=== PATIENT | female | born 1970 | race Hispanic/Latino ===

== ENCOUNTER → 2022-06-10 | Outpatient (CLI) | payer BC ==
[~2022-06-10] MED LIST: FUROSEMIDE INJ 10 MG/ML 4 ML VIAL ONE
== END ==
LOC: NM 08:21
PROVIDERS: ATTEND Urology
DX: N13.30 Unspecified hydronephrosis (principal); T19.1XXA Foreign body in bladder, initial encounter
CPT/HCPCS: 76770; 76857; 78708; A9562; J1940

== ENCOUNTER 2022-07-07 12:42 | Emergency (ER) | payer BC ==
[~2022-07-07] VITALS: Ht 149.9 cm; Wt 58.1 kg
[2022-07-07] MEDS ORDERED: SODIUM CHLORIDE 0.9% 1000ML 1,000 ML IV STA ×2 (13:23→13:31)
[2022-07-07] MEDS ORDERED: ACETAMINOPHEN 1000 MG/100 ML IV ONE (13:45)
[2022-07-07 13:54] LABS: BASOPHILS % 0.2 % (0.0-1.0); HEMOGLOBIN 11.5 g/dL (12.0-16.0); LYMPHOCYTES # (AUTO) 1.1 (1.0-3.2); LYMPHOCYTES % 9.4 % (18.0-39.1); MEAN CORPUSCULAR HEMOGLOBIN 29.3 pg (28-32); MEAN CORPUSCULAR HGB CONC 33.8 g/dL (31-35); MEAN CORPUSCULAR VOLUME 86.5 fL (81-99); MONOCYTES % 8.3 % (4.4-11.3); NEUTROPHILS # (AUTO) 9.9 (2.1-6.9); NEUTROPHILS % 81.4 % (38.7-80.0); PLATELET COUNT 409 x10e3/uL (140-360); RED BLOOD COUNT 3.93 x10e6/uL (3.6-5.1); RED CELL DISTRIBUTION WIDTH 12.3 % (11.7-14.4)
[2022-07-07 14:14] LABS: ALBUMIN 3.4 g/dL (3.5-5.0); ALBUMIN/GLOBULIN RATIO 0.6 (0.8-2.0); CREATININE, SERUM 0.91 mg/dL (0.57-1.11)
[2022-07-07 14:35] LABS: ANION GAP 19.8 mmol/L (8-16); POTASSIUM 3.8 mmol/L (3.5-5.1)
[2022-07-07 16:12] LABS: CLARITY,URINE CLOUDY (CLEAR); COLOR,URINE YELLOW (YELLOW)
[2022-07-07 16:13] LABS: KETONES,URINE 2+ (NEGATIVE); LEUKOCYTE ESTERASE ,URINE SMALL (NEGATIVE); NITRITE,URINE POSITIVE (NEGATIVE); PROTEIN,URINE DIPSTICK 2+ (NEGATIVE); URINE UROBILINOGEN 0.2 mg/dL (0.2 - 1)
[2022-07-07 16:19] LABS: BACTERIA,URINE MODERATE /HPF; RBC,URINE 21-50 /HPF (0-5); WBC,URINE (MAN) >50 /HPF (0-5)
[2022-07-07 16:20] LABS: EPITHELIAL CELLS,URINE MODERATE /LPF; MUCUS,URINE MANY (RARE)
[2022-07-07] MEDS ORDERED: CIPRO500 MG PO (16:51)
[2022-07-07 17:20] VITALS: BP 111/84
== END 2022-07-07 17:00 | disposition home or self-care (01) ==
LOC: ER 13:12
DX: R50.9 Fever, unspecified (principal); R11.2 Nausea with vomiting, unspecified; I10 Essential (primary) hypertension; Z20.822 Contact with and (suspected) exposure to COVID-19; R94.31 Abnormal electrocardiogram [ECG] [EKG]; Z85.41 Personal history of malignant neoplasm of cervix uteri
CPT/HCPCS: 36415; 71045; 74176; 80053; 81001; 83605; 83690; 85025; 87040; 87086; 87186; 87400; 93005; 94760; 99284; J0131; J2543; J7030; U0002

== ENCOUNTER 2022-07-29 13:33 | Emergency (ER) | payer BC ==
[~2022-07-29] VITALS: Ht 149.9 cm; Wt 58.1 kg
[~2022-07-29 13:33] MED LIST changes: -ATORVASTATIN CA10 MG PO; -CEFDINIR300 MG PO; -DITROPAN XL5 MG PO; -FUROSEMIDE INJ 10 MG/ML 4 ML VIAL ONE
[2022-07-29] MEDS ORDERED: SODIUM CHLORIDE 0.9% 1000ML 1,000 ML IV ONE (15:45)
[2022-07-29 16:02] LABS: BASOPHILS % 0.2 % (0.0-1.0); EOSINOPHILS # (AUTO) 0.1 (0.0-0.4); EOSINOPHILS % 0.8 % (0.0-6.0); HEMATOCRIT 36.5 % (34.2-44.1); HEMOGLOBIN 11.3 g/dL (12.0-16.0); LYMPHOCYTES % 16.2 % (18.0-39.1); MEAN CORPUSCULAR HEMOGLOBIN 28.5 pg (28-32); MEAN CORPUSCULAR VOLUME 91.9 fL (81-99); MONOCYTES # (AUTO) 0.6 (0.2-0.8); MONOCYTES % 8.7 % (4.4-11.3); NEUTROPHILS # (AUTO) 4.7 (2.1-6.9); NEUTROPHILS % 73.8 % (38.7-80.0); PLATELET COUNT 448 x10e3/uL (140-360); RED BLOOD COUNT 3.97 x10e6/uL (3.6-5.1); RED CELL DISTRIBUTION WIDTH 12.6 % (11.7-14.4)
[2022-07-29 16:19] LABS: CLARITY,URINE CLEAR (CLEAR); COLOR,URINE STRAW (YELLOW); KETONES,URINE NEGATIVE (NEGATIVE); LEUKOCYTE ESTERASE ,URINE MODERATE (NEGATIVE); NITRITE,URINE POSITIVE (NEGATIVE); PROTEIN,URINE DIPSTICK TRACE (NEGATIVE); URINE UROBILINOGEN 0.2 mg/dL (0.2 - 1)
[2022-07-29 16:20] LABS: BACTERIA,URINE MODERATE /HPF; RBC,URINE 0-5 /HPF (0-5); WBC,URINE (MAN) >50 /HPF (0-5)
[2022-07-29 16:21] LABS: EPITHELIAL CELLS,URINE MODERATE /LPF
[2022-07-29] MEDS ORDERED: KETOROLAC TROMETHAMINE 30 MG/ML VIAL IV STA (16:22)
[2022-07-29 16:29] LABS: ALBUMIN 3.8 g/dL (3.5-5.0); ALBUMIN/GLOBULIN RATIO 0.7 (0.8-2.0); ANION GAP 19.5 mmol/L (8-16); CALCIUM 10.2 mg/dL (8.4-10.2); CREATININE, SERUM 0.84 mg/dL (0.57-1.11); POTASSIUM 3.5 mmol/L (3.5-5.1)
[2022-07-29] MEDS ORDERED: CEFDINIR300 MG PO (17:46)
[2022-07-29] MEDS ORDERED: DITROPAN XL5 MG PO (17:46)
[2022-08-01] MEDS ORDERED: ATORVASTATIN CA10 MG PO (12:26)
== END 2022-07-29 18:10 | disposition home or self-care (01) ==
LOC: ER 13:57
DX: R50.9 Fever, unspecified (principal); N30.90 Cystitis, unspecified without hematuria; Z85.41 Personal history of malignant neoplasm of cervix uteri
CPT/HCPCS: 36415; 80053; 81001; 85025; 87040; 87086; 99284; J0696; J1885; J7030; 87186

== ENCOUNTER → 2022-07-29 | Outpatient (CLI) | payer BC ==
[~2022-07-29] MED LIST changes: +ATORVASTATIN CA10 MG PO; +CEFDINIR300 MG PO; +CIPRO500 MG PO; +DITROPAN XL5 MG PO
== END ==
LOC: NM 11:38
PROVIDERS: ATTEND Urology
DX: N13.30 Unspecified hydronephrosis (principal)
CPT/HCPCS: 78708; A9562; J1940

== ENCOUNTER → 2022-10-23 | Day surgery (SDC) | payer BC, OTHER ==
[2022-10-22 12:34] LABS: BASOPHILS % 0.2 % (0.0-1.0); EOSINOPHILS # (AUTO) 0.1 (0.0-0.4); EOSINOPHILS % 1.7 % (0.0-6.0); HEMATOCRIT 31.9 % (34.2-44.1); HEMOGLOBIN 10.1 g/dL (12.0-16.0); LYMPHOCYTES % 17.6 % (18.0-39.1); MEAN CORPUSCULAR HEMOGLOBIN 28.4 pg (28-32); MEAN CORPUSCULAR HGB CONC 31.7 g/dL (31-35); MEAN CORPUSCULAR VOLUME 89.6 fL (81-99); MONOCYTES # (AUTO) 0.5 (0.2-0.8); MONOCYTES % 8.9 % (4.4-11.3); NEUTROPHILS # (AUTO) 3.9 (2.1-6.9); NEUTROPHILS % 71.4 % (38.7-80.0); PLATELET COUNT 318 x10e3/uL (140-360); RED BLOOD COUNT 3.56 x10e6/uL (3.6-5.1); RED CELL DISTRIBUTION WIDTH 13.6 % (11.7-14.4)
[2022-10-22 12:58] LABS: ANION GAP 11.7 mmol/L (8-16); CALCIUM 8.9 mg/dL (8.4-10.2); CREATININE, SERUM 0.92 mg/dL (0.57-1.11); POTASSIUM 3.7 mmol/L (3.5-5.1)
[~2022-10-23] MED LIST changes: +AMLODIPINE BESY10 MG PO; +ATORVASTATIN CA10 MG PO; +BOTULINUM TOXIN TYPE A 100 UNIT VIAL IM ONE; +CEFDINIR300 MG PO; +CEFTRIAXONE 1 GM VIAL ONE; +DEXAMETHASONE SOD PHOS INJ 4 MG/ML SDV ONE; +DITROPAN XL5 MG PO; +FENTANYL CITRATE/PF 100MCG/2 ML INJ ONE; +FLUCONAZOLE 200 MG/100 ML 100 ML IV ONE; +GENTAMICIN 80MG/NS 100 ML 200 ML IV ONE; +KETOROLAC TROMETHAMINE 30 MG/ML VIAL ONE; +LIDOCAINE HCL 2% LOCAL INJ 5 ML SDV VIAL INJ ONE; +MACROBID 100 M100 MG PO; +MIDAZOLAM HCL 2 MG/2 ML VIAL ONE; +ONDANSETRON HCL INJ 2MG/ML 2ML 2 MG/ML VIAL ONE; +OXYBUTYNIN CHLOR5 MG PO; +PHENAZOPYRIDINE HCL 100 MG TAB ONE; +POVIDONE IODINE 0.05% 0.05 % ML PO ONE; +PROPOFOL IV EMULSION 10 MG/ML 20 ML VIAL ONE; +SEVOFLURANE INHAL SOLN 250 ML PEN BTL ONE; +TRAMADOL HCL100 MG PO
[2022-10-23 12:50] VITALS: BP 150/88
== END | disposition home or self-care (01) ==
LOC: OR 07:16
PROVIDERS: ATTEND Urology
DX: N13.1 Hydronephrosis with ureteral stricture, not elsewhere classified (principal); Z46.6 Encounter for fitting and adjustment of urinary device; N39.41 Urge incontinence; N81.10 Cystocele, unspecified; N95.2 Postmenopausal atrophic vaginitis; N32.89 Other specified disorders of bladder; Z01.810 Encounter for preprocedural cardiovascular examination; Z01.812 Encounter for preprocedural laboratory examination; Z79.899 Other long term (current) drug therapy; Z85.41 Personal history of malignant neoplasm of cervix uteri; Z92.3 Personal history of irradiation
CPT/HCPCS: 36415; 52287; 52332; 52341; 74420; 80048; 85025; 87086; 87186; 93005; C1758; C2617; J0587; J0696; J1100; J1450; J1580; J1885; J2001; J2250; J2405; J2704; J3010

== ENCOUNTER 2022-12-27 22:09 | Inpatient (IN) | payer OTHER ==
[~2022-12-27] VITALS: Ht 149.9 cm; Wt 54.4 kg
[~2022-12-27 22:09] MED LIST changes: -BOTULINUM TOXIN TYPE A 100 UNIT VIAL IM ONE; -CEFTRIAXONE 1 GM VIAL ONE; -DEXAMETHASONE SOD PHOS INJ 4 MG/ML SDV ONE; -FENTANYL CITRATE/PF 100MCG/2 ML INJ ONE; -FLUCONAZOLE 200 MG/100 ML 100 ML IV ONE; -GENTAMICIN 80MG/NS 100 ML 200 ML IV ONE; -KETOROLAC TROMETHAMINE 30 MG/ML VIAL ONE; -LIDOCAINE HCL 2% LOCAL INJ 5 ML SDV VIAL INJ ONE; -MIDAZOLAM HCL 2 MG/2 ML VIAL ONE; -ONDANSETRON HCL INJ 2MG/ML 2ML 2 MG/ML VIAL ONE; -PHENAZOPYRIDINE HCL 100 MG TAB ONE; -POVIDONE IODINE 0.05% 0.05 % ML PO ONE; -PROPOFOL IV EMULSION 10 MG/ML 20 ML VIAL ONE; -SEVOFLURANE INHAL SOLN 250 ML PEN BTL ONE
[2022-12-27] MEDS ORDERED: ACETAMINOPHEN 325 MG TAB PO PRN (23:45)
[2022-12-28] MEDS: ONDANSETRON HCL INJ 2MG/ML 2ML 2 MG/ML VIAL IV PRN ×4 (01:43→20:48)
[2022-12-28] MEDS: Morphine 4mg INJECTION 4 MG/ML INJ IV PRN ×3 (01:44→20:48)
[2022-12-28] MEDS: SODIUM CHLORIDE 0.9% 1000ML 1,000 ML IV SCH ×2 (01:44→16:23)
[2022-12-28 02:42] VITALS: BP 135/84; PULSE 75; RESP 19; TEMP 97.8; O2SAT 100
[2022-12-28 05:17] VITALS: BP 123/72; PULSE 74; RESP 19; TEMP 97.6; O2SAT 99
[2022-12-28] MEDS ORDERED: DOCUSATE SODIUM 100 MG CAP PO PRN (07:30)
[2022-12-28] MEDS ORDERED: SIMETHICONE 80 MG CHEW PO PRN (07:30)
[2022-12-28 08:18] LABS: BASOPHILS % 0.2 % (0.0-1.0); EOSINOPHILS # (AUTO) 0.1 (0.0-0.4); EOSINOPHILS % 2.4 % (0.0-6.0); HEMOGLOBIN 9.2 g/dL (12.0-16.0); LYMPHOCYTES # (AUTO) 0.6 (1.0-3.2); LYMPHOCYTES % 10.8 % (18.0-39.1); MEAN CORPUSCULAR HGB CONC 31.7 g/dL (31-35); MEAN CORPUSCULAR VOLUME 88.4 fL (81-99); MONOCYTES # (AUTO) 0.5 (0.2-0.8); NEUTROPHILS # (AUTO) 4.2 (2.1-6.9); NEUTROPHILS % 77.4 % (38.7-80.0); PLATELET COUNT 313 x10e3/uL (140-360); RED BLOOD COUNT 3.28 x10e6/uL (3.6-5.1)
[2022-12-28 08:42] LABS: ALBUMIN/GLOBULIN RATIO 0.8 (0.8-2.0); ANION GAP 10.9 mmol/L (8-16); CREATININE, SERUM 0.88 mg/dL (0.57-1.11); POTASSIUM 3.9 mmol/L (3.5-5.1)
[2022-12-28] MEDS: AMLODIPINE BESYLATE 10 MG TAB PO SCH (09:03)
[2022-12-28 09:08] VITALS: BP 123/72; PULSE 74; RESP 19; TEMP 97.6; O2SAT 99
[2022-12-28 10:48] LABS: MAGNESIUM 1.7 MG/DL (1.3-2.1); PHOSPHORUS 4.2 MG/DL (2.3-4.7)
[2022-12-28 11:38] LABS: CLARITY,URINE CLOUDY (CLEAR); COLOR,URINE PINK (YELLOW); LEUKOCYTE ESTERASE ,URINE MODERATE (NEGATIVE)
[2022-12-28 11:39] LABS: KETONES,URINE NEGATIVE (NEGATIVE); NITRITE,URINE NEGATIVE (NEGATIVE); PROTEIN,URINE DIPSTICK 2+ (NEGATIVE); URINE UROBILINOGEN 0.2 mg/dL (0.2 - 1)
[2022-12-28 11:50] LABS: BACTERIA,URINE FEW /HPF; EPITHELIAL CELLS,URINE FEW /LPF; RBC,URINE >50 /HPF (0-5); WBC,URINE (MAN) >50 /HPF (0-5)
[2022-12-28] MEDS ORDERED: POVIDONE IODINE 0.05% 0.05 % ML PO ONE (12:03)
[2022-12-28] MEDS ORDERED: PROPOFOL IV EMULSION 10 MG/ML 20 ML VIAL ONE (12:03)
[2022-12-28] MEDS ORDERED: ONDANSETRON HCL INJ 2MG/ML 2ML 2 MG/ML VIAL ONE (12:03)
[2022-12-28] MEDS ORDERED: LIDOCAINE HCL 2% LOCAL INJ 5 ML SDV VIAL INJ ONE (12:03)
[2022-12-28] MEDS ORDERED: SEVOFLURANE INHAL SOLN 250 ML PEN BTL ONE (12:03)
[2022-12-28] MEDS ORDERED: DEXAMETHASONE SOD PHOS INJ 4 MG/ML SDV ONE (12:03)
[2022-12-28 12:34] VITALS: BP 130/74; PULSE 64; RESP 19; TEMP 98.2; O2SAT 98
[2022-12-28 17:17] VITALS: BP_SYST 115; BP_SYST 130; BP_DIAS 74; BP_DIAS 77; PULSE 64; PULSE 74; RESP 19; TEMP 98.2; TEMP 98.3; O2SAT 98
[2022-12-28 20:00] VITALS: BP 120/81; PULSE 74; RESP 19; TEMP 98.3; O2SAT 98
[2022-12-28] MEDS: ATORVASTATIN 10 MG TAB PO SCH (20:48)
[2022-12-28] MEDS: MELATONIN 3 MG TAB PO PRN (20:49)
[2022-12-29] MEDS: ONDANSETRON HCL INJ 2MG/ML 2ML 2 MG/ML VIAL IV PRN ×3 (01:40→20:11)
[2022-12-29] MEDS: TRAMADOL HCL 50 MG TAB PO PRN ×2 (01:41→16:37)
[2022-12-29 06:14] LABS: BASOPHILS % 0.2 % (0.0-1.0); EOSINOPHILS # (AUTO) 0.2 (0.0-0.4); EOSINOPHILS % 3.8 % (0.0-6.0); HEMATOCRIT 27.8 % (34.2-44.1); HEMOGLOBIN 8.9 g/dL (12.0-16.0); LYMPHOCYTES # (AUTO) 1.2 (1.0-3.2); LYMPHOCYTES % 24.4 % (18.0-39.1); MEAN CORPUSCULAR HEMOGLOBIN 28.3 pg (28-32); MEAN CORPUSCULAR VOLUME 88.5 fL (81-99); MONOCYTES # (AUTO) 0.5 (0.2-0.8); MONOCYTES % 9.8 % (4.4-11.3); NEUTROPHILS # (AUTO) 2.9 (2.1-6.9); NEUTROPHILS % 61.6 % (38.7-80.0); PLATELET COUNT 307 x10e3/uL (140-360); RED BLOOD COUNT 3.14 x10e6/uL (3.6-5.1); RED CELL DISTRIBUTION WIDTH 13.7 % (11.7-14.4)
[2022-12-29 06:33] LABS: ANION GAP 9.7 mmol/L (8-16); CALCIUM 8.8 mg/dL (8.4-10.2); CREATININE, SERUM 0.92 mg/dL (0.57-1.11); MAGNESIUM 1.7 MG/DL (1.3-2.1); PHOSPHORUS 3.9 MG/DL (2.3-4.7); POTASSIUM 3.7 mmol/L (3.5-5.1)
[2022-12-29 08:19] VITALS: BP 128/76; PULSE 77; RESP 18; TEMP 98.2; O2SAT 100
[2022-12-29] MEDS: AMLODIPINE BESYLATE 10 MG TAB PO SCH (08:19)
[2022-12-29 08:21] VITALS: BP 128/76; PULSE 77; RESP 18; TEMP 98.2; O2SAT 100
[2022-12-29] MEDS: SODIUM CHLORIDE 0.9% 1000ML 1,000 ML IV SCH (10:54)
[2022-12-29] MEDS: Morphine 4mg INJECTION 4 MG/ML INJ IV PRN ×2 (11:14→20:11)
[2022-12-29 12:10] VITALS: BP 121/68; PULSE 71; RESP 18; TEMP 98.3; O2SAT 98
[2022-12-29 16:14] VITALS: BP 105/63; PULSE 87; RESP 17; TEMP 98.1; O2SAT 96
[2022-12-29] MEDS: ATORVASTATIN 10 MG TAB PO SCH (20:11)
[2022-12-29] MEDS: MELATONIN 3 MG TAB PO PRN (20:11)
[2022-12-29] MEDS: SOLIFENACIN SUCCINATE 5 MG TAB PO SCH (21:08)
[2022-12-29 22:23] VITALS: BP 129/82; PULSE 87; RESP 17; TEMP 98.1; O2SAT 100
[2022-12-30 04:00] VITALS: BP 111/82; PULSE 83; RESP 17; TEMP 97.9; O2SAT 99
[2022-12-30] MEDS: SODIUM CHLORIDE 0.9% 1000ML 1,000 ML IV SCH ×2 (04:33→17:02)
[2022-12-30 08:00] VITALS: BP 121/82; PULSE 74; RESP 16; TEMP 98.1; O2SAT 100
[2022-12-30] MEDS: ONDANSETRON HCL INJ 2MG/ML 2ML 2 MG/ML VIAL IV PRN ×3 (08:23→23:24)
[2022-12-30] MEDS: Morphine 4mg INJECTION 4 MG/ML INJ IV PRN ×3 (08:23→23:24)
[2022-12-30] MEDS: AMLODIPINE BESYLATE 10 MG TAB PO SCH (08:23)
[2022-12-30] MEDS: SOLIFENACIN SUCCINATE 5 MG TAB PO SCH (08:23)
[2022-12-30 08:32] VITALS: BP 121/82; PULSE 74; RESP 16; TEMP 98.1; O2SAT 100
[2022-12-30] MEDS ORDERED: FLUCONAZOLE 100 MG/NS 50 ML 50 ML IV SCH (11:00)
[2022-12-30] MEDS ORDERED: MIDAZOLAM HCL 2 MG/2 ML VIAL ONE (12:04)
[2022-12-30] MEDS ORDERED: FENTANYL CITRATE/PF 100MCG/2 ML INJ ONE (12:04)
[2022-12-30] MEDS ORDERED: IOPAMIDOL 610MG/1ML 300 MG/ML VIAL IV ONE (13:33)
[2022-12-30 17:00] VITALS: BP 126/81; PULSE 89; RESP 16; TEMP 98.6; O2SAT 100
[2022-12-30] MEDS: TRAMADOL HCL 50 MG TAB PO PRN (17:21)
[2022-12-30 20:00] VITALS: BP 112/74; PULSE 94; RESP 16; TEMP 98.6; O2SAT 100
[2022-12-30] MEDS: MELATONIN 3 MG TAB PO PRN (21:21)
[2022-12-30] MEDS: PHENAZOPYRIDINE HCL 100 MG TAB PO PRN (21:21)
[2022-12-30] MEDS: ATORVASTATIN 10 MG TAB PO SCH (21:21)
[2022-12-31 04:00] VITALS: BP 109/73; PULSE 76; RESP 18; TEMP 97.9
[2022-12-31] MEDS: SOLIFENACIN SUCCINATE 5 MG TAB PO SCH (04:08)
[2022-12-31] MEDS: TRAMADOL HCL 50 MG TAB PO PRN (04:08)
[2022-12-31] MEDS: SODIUM CHLORIDE 0.9% 1000ML 1,000 ML IV SCH (04:12)
[2022-12-31 08:27] LABS: HEMATOCRIT 30.5 % (34.2-44.1); LYMPHOCYTES # (AUTO) 0.9 (1.0-3.2); LYMPHOCYTES % 7.6 % (18.0-39.1); MEAN CORPUSCULAR HGB CONC 32.8 g/dL (31-35); MEAN CORPUSCULAR VOLUME 85.4 fL (81-99); MONOCYTES # (AUTO) 0.5 (0.2-0.8); MONOCYTES % 3.8 % (4.4-11.3); NEUTROPHILS # (AUTO) 10.6 (2.1-6.9); NEUTROPHILS % 88.3 % (38.7-80.0); PLATELET COUNT 379 x10e3/uL (140-360); RED BLOOD COUNT 3.57 x10e6/uL (3.6-5.1); RED CELL DISTRIBUTION WIDTH 13.2 % (11.7-14.4)
[2022-12-31] MEDS: ONDANSETRON HCL INJ 2MG/ML 2ML 2 MG/ML VIAL IV PRN ×4 (08:30→18:16)
[2022-12-31] MEDS: FLUCONAZOLE 100 MG TAB PO SCH (08:30)
[2022-12-31] MEDS: Morphine 4mg INJECTION 4 MG/ML INJ IV PRN ×4 (08:30→18:17)
[2022-12-31] MEDS: PHENAZOPYRIDINE HCL 100 MG TAB PO PRN ×2 (08:30→23:59)
[2022-12-31] MEDS: AMLODIPINE BESYLATE 10 MG TAB PO SCH (08:39)
[2022-12-31 08:46] VITALS: BP 122/77; PULSE 78; RESP 16; TEMP 98.4; O2SAT 96
[2022-12-31 08:55] LABS: ANION GAP 12.9 mmol/L (8-16); CALCIUM 9.6 mg/dL (8.4-10.2); CREATININE, SERUM 1.05 mg/dL (0.57-1.11); POTASSIUM 3.9 mmol/L (3.5-5.1)
[2022-12-31 12:29] VITALS: BP 118/86; PULSE 79; RESP 16; TEMP 98; O2SAT 97
[2022-12-31 16:31] VITALS: BP 132/75; PULSE 81; RESP 16; TEMP 98; O2SAT 100
[2022-12-31] MEDS: FAMOTIDINE 20 MG TAB PO SCH (18:17)
[2022-12-31 20:00] VITALS: BP 122/78; PULSE 67; RESP 18; TEMP 98; O2SAT 100
[2022-12-31] MEDS: ATORVASTATIN 10 MG TAB PO SCH (20:29)
[2022-12-31] MEDS: MELATONIN 3 MG TAB PO PRN (23:59)
[2023-01-01] VITALS: BP 112/79; PULSE 72; RESP 18; TEMP 98.5; O2SAT 99
[2023-01-01] MEDS: Morphine 4mg INJECTION 4 MG/ML INJ IV PRN ×3 (00:02→14:13)
[2023-01-01 03:18] VITALS: BP 132/75; PULSE 81; RESP 16; TEMP 98; O2SAT 100
[2023-01-01 04:00] VITALS: BP 108/62; PULSE 66; RESP 18; TEMP 98.1; O2SAT 100
[2023-01-01] MEDS: SODIUM CHLORIDE 0.9% 1000ML 1,000 ML IV SCH (05:22)
[2023-01-01] MEDS: ONDANSETRON HCL INJ 2MG/ML 2ML 2 MG/ML VIAL IV PRN ×2 (05:22→14:13)
[2023-01-01] MEDS: FAMOTIDINE 20 MG TAB PO SCH (05:22)
[2023-01-01 08:00] VITALS: BP 115/75; PULSE 61; RESP 18; TEMP 97.9; O2SAT 97
[2023-01-01 08:17] VITALS: BP 115/75; PULSE 61; RESP 18; TEMP 97.9; O2SAT 97
[2023-01-01] MEDS: FLUCONAZOLE 100 MG TAB PO SCH (08:29)
[2023-01-01] MEDS: SOLIFENACIN SUCCINATE 5 MG TAB PO SCH (08:29)
[2023-01-01] MEDS: AMLODIPINE BESYLATE 10 MG TAB PO SCH (08:29)
[2023-01-01] MEDS: TRAMADOL HCL 50 MG TAB PO PRN (08:37)
[2023-01-01 13:17] VITALS: BP 103/65; PULSE 74; RESP 16; TEMP 98.4; O2SAT 98
== END 2023-01-01 17:13 | disposition home or self-care (01) | DRG 661 ==
LOC: MED/SURG2 23:09 → OBSVTOIN 12-28 18:44
PROVIDERS: ADMIT Internal Medicine; ATTEND Internal Medicine
PROC: 0T788DZ Dilation of Bilateral Ureters with Intraluminal Device, Via Natural or Artificial Opening Endoscopic (ICD-10-PCS; 2022-12-30)
PROC: 0TP98DZ Removal of Intraluminal Device from Ureter, Via Natural or Artificial Opening Endoscopic (ICD-10-PCS; 2022-12-30)
PROC: 0TP98DZ Removal of Intraluminal Device from Ureter, Via Natural or Artificial Opening Endoscopic (ICD-10-PCS; principal; 2022-12-30 13:36)
DX: N13.6 Pyonephrosis (principal); E78.5 Hyperlipidemia, unspecified; I10 Essential (primary) hypertension; N39.0 Urinary tract infection, site not specified; N81.10 Cystocele, unspecified; N76.0 Acute vaginitis; Z92.3 Personal history of irradiation; Z85.41 Personal history of malignant neoplasm of cervix uteri
CPT/HCPCS: 36415; 74420; 80048; 80053; 81001; 83735; 84100; 85025; 87086; 99252; C1758; C1769; C2617; G0378; J0696; J1100; J1450; J2001; J2250; J2270; J2405; J7030

== ENCOUNTER 2023-07-23 12:12 | Inpatient (IN) | payer OTHER ==
[~2023-07-23] VITALS: Ht 149.9 cm; Wt 59.0 kg
[~2023-07-23 12:12] MED LIST changes: +AUGMENTIN 500-1 EACH PO; +KETOROLAC TROME10 MG PO; +METHENAMINE HIPP1 GM PO; +ONDANSETRON ODT4 MG SL
[2023-07-23] MEDS ORDERED: KETOROLAC TROMETHAMINE 30 MG/ML VIAL IV STA (13:11)
[2023-07-23 13:19] LABS: BASOPHILS % 0.2 % (0.0-1.0); EOSINOPHILS # (AUTO) 0.1 (0.0-0.4); EOSINOPHILS % 2.2 % (0.0-6.0); HEMATOCRIT 34.3 % (34.2-44.1); HEMOGLOBIN 11.3 g/dL (12.0-16.0); LYMPHOCYTES % 16.3 % (18.0-39.1); MEAN CORPUSCULAR HGB CONC 32.9 g/dL (31-35); MEAN CORPUSCULAR VOLUME 88.2 fL (81-99); MONOCYTES # (AUTO) 0.5 (0.2-0.8); MONOCYTES % 8.4 % (4.4-11.3); NEUTROPHILS # (AUTO) 4.3 (2.1-6.9); NEUTROPHILS % 72.4 % (38.7-80.0); PLATELET COUNT 365 x10e3/uL (140-360); RED BLOOD COUNT 3.89 x10e6/uL (3.6-5.1); RED CELL DISTRIBUTION WIDTH 13.1 % (11.7-14.4); WHITE BLOOD COUNT 5.96 x10e3/uL (4.8-10.8)
[2023-07-23 13:28] LABS: COLOR,URINE ORANGE (YELLOW)
[2023-07-23 13:29] LABS: CLARITY,URINE TURBID (CLEAR); GLUCOSE, URINE 1+ (NEGATIVE); KETONES,URINE TRACE (NEGATIVE); LEUKOCYTE ESTERASE ,URINE LARGE (NEGATIVE); NITRITE,URINE POSITIVE (NEGATIVE); PH,URINE 6 (5 - 7); PROTEIN,URINE DIPSTICK >=300 (NEGATIVE)
[2023-07-23] MEDS ORDERED: FENTANYL CITRATE/PF 100MCG/2 ML INJ IV PRN (13:30)
[2023-07-23 13:31] LABS: BACTERIA,URINE MANY /HPF; BILIRUBIN,URINE SMALL (NEGATIVE); EPITHELIAL CELLS,URINE FEW /LPF; RBC,URINE >50 /HPF (0-5); WBC,URINE (MAN) >50 /HPF (0-5)
[2023-07-23 13:48] LABS: ALBUMIN 3.4 g/dL (3.5-5.0); ALBUMIN/GLOBULIN RATIO 0.9 (0.8-2.0); ANION GAP 13.7 mmol/L (8-16); BILIRUBIN,TOTAL 0.2 mg/dL (0.2-1.2); CALCIUM 9.6 mg/dL (8.4-10.2); CREATININE, SERUM 0.86 mg/dL (0.57-1.11); POTASSIUM 3.7 mmol/L (3.6-4.7); TOTAL PROTEIN 7.2 g/dL (6.5-8.1)
[2023-07-23] MEDS ORDERED: FENTANYL CITRATE/PF 100MCG/2 ML INJ IV ONE (15:15)
[2023-07-23 16:06] VITALS: PULSE 78; RESP 18; O2SAT 98
[2023-07-23 17:00] VITALS: BP 138/90; PULSE 72; PULSE 78; RESP 18; TEMP 98.2; O2SAT 98
[2023-07-23 20:00] VITALS: BP 144/80; PULSE 79; RESP 20; TEMP 98; O2SAT 98
[2023-07-23] MEDS: ONDANSETRON HCL INJ 2MG/ML 2ML 2 MG/ML VIAL IV PRN (20:27)
[2023-07-23] MEDS: Morphine 4mg INJECTION 4 MG/ML INJ IV PRN (20:27)
[2023-07-23 20:35] VITALS: PULSE 94; RESP 18; O2SAT 97
[2023-07-23] MEDS: FAMOTIDINE 20 MG TAB PO SCH (21:20)
[2023-07-24] VITALS (10 sets, daily range): BP systolic 119–135; BP diastolic 74–87; PULSE 71–91; RESP 18–20; TEMP 98.1–98.7; O2SAT 95–100
[2023-07-24 05:55] LABS: BASOPHILS % 0.2 % (0.0-1.0); EOSINOPHILS # (AUTO) 0.2 (0.0-0.4); HEMATOCRIT 32.7 % (34.2-44.1); HEMOGLOBIN 10.9 g/dL (12.0-16.0); MEAN CORPUSCULAR HEMOGLOBIN 29.5 pg (28-32); MEAN CORPUSCULAR HGB CONC 33.3 g/dL (31-35); MEAN CORPUSCULAR VOLUME 88.6 fL (81-99); MONOCYTES # (AUTO) 0.5 (0.2-0.8); NEUTROPHILS # (AUTO) 3.3 (2.1-6.9); NEUTROPHILS % 66.6 % (38.7-80.0); PLATELET COUNT 327 x10e3/uL (140-360); RED BLOOD COUNT 3.69 x10e6/uL (3.6-5.1); RED CELL DISTRIBUTION WIDTH 13.1 % (11.7-14.4); WHITE BLOOD COUNT 4.99 x10e3/uL (4.8-10.8)
[2023-07-24 06:24] LABS: ANION GAP 13.7 mmol/L (8-16); CALCIUM 9.1 mg/dL (8.4-10.2); CREATININE, SERUM 0.84 mg/dL (0.57-1.11); POTASSIUM 4.7 mmol/L (3.5-5.1)
[2023-07-24] MEDS: FAMOTIDINE 20 MG TAB PO SCH ×3 (10:06→21:56)
[2023-07-24] MEDS: ONDANSETRON HCL INJ 2MG/ML 2ML 2 MG/ML VIAL IV PRN ×3 (12:32→21:55)
[2023-07-24] MEDS: Morphine 4mg INJECTION 4 MG/ML INJ IV PRN ×3 (12:32→21:56)
[2023-07-24] MEDS: PHENAZOPYRIDINE HCL 100 MG TAB PO PRN (16:43)
[2023-07-25] VITALS: BP 112/80; PULSE 98; RESP 18; TEMP 98.5; O2SAT 99
[2023-07-25 04:00] VITALS: BP 154/95; PULSE 93; RESP 18; TEMP 98.3; O2SAT 98
[2023-07-25 06:15] LABS: BASOPHILS % 0.2 % (0.0-1.0); EOSINOPHILS # (AUTO) 0.1 (0.0-0.4); EOSINOPHILS % 1.8 % (0.0-6.0); HEMATOCRIT 36.8 % (34.2-44.1); HEMOGLOBIN 12.2 g/dL (12.0-16.0); LYMPHOCYTES # (AUTO) 1.3 (1.0-3.2); MEAN CORPUSCULAR HEMOGLOBIN 29.4 pg (28-32); MEAN CORPUSCULAR HGB CONC 33.2 g/dL (31-35); MEAN CORPUSCULAR VOLUME 88.7 fL (81-99); MONOCYTES # (AUTO) 0.5 (0.2-0.8); MONOCYTES % 8.5 % (4.4-11.3); NEUTROPHILS # (AUTO) 4.2 (2.1-6.9); NEUTROPHILS % 68.2 % (38.7-80.0); PLATELET COUNT 363 x10e3/uL (140-360); RED BLOOD COUNT 4.15 x10e6/uL (3.6-5.1); RED CELL DISTRIBUTION WIDTH 12.9 % (11.7-14.4); WHITE BLOOD COUNT 6.13 x10e3/uL (4.8-10.8)
[2023-07-25 06:42] LABS: ALBUMIN 3.6 g/dL (3.5-5.0); ALBUMIN/GLOBULIN RATIO 0.9 (0.8-2.0); ANION GAP 13.9 mmol/L (8-16); BILIRUBIN,TOTAL 0.6 mg/dL (0.2-1.2); CALCIUM 9.7 mg/dL (8.4-10.2); CREATININE, SERUM 0.84 mg/dL (0.57-1.11); POTASSIUM 3.9 mmol/L (3.5-5.1); TOTAL PROTEIN 7.5 g/dL (6.5-8.1)
[2023-07-25 08:41] VITALS: BP 144/98; PULSE 94; RESP 16; TEMP 98.1; O2SAT 100
[2023-07-25 09:00] VITALS: BP 144/94; PULSE 94; TEMP 98.1
[2023-07-25] MEDS: FAMOTIDINE 20 MG TAB PO SCH ×2 (09:15→16:08)
[2023-07-25] MEDS: CIPROFLOXACIN 500 MG TAB PO SCH ×2 (09:24→16:08)
[2023-07-25] MEDS: PHENAZOPYRIDINE HCL 100 MG TAB PO PRN ×2 (09:25→16:49)
[2023-07-25] MEDS: Morphine 4mg INJECTION 4 MG/ML INJ IV PRN ×2 (09:26→15:46)
[2023-07-25] MEDS: ONDANSETRON HCL INJ 2MG/ML 2ML 2 MG/ML VIAL IV PRN (10:58)
[2023-07-25 12:21] VITALS: BP 116/77; PULSE 94; RESP 18; TEMP 98.4; O2SAT 97
[2023-07-25] MEDS ORDERED: CIPRO500 MG PO (15:23)
[2023-07-25] MEDS ORDERED: KETOROLAC TROME10 MG PO (15:28)
[2023-07-25] MEDS ORDERED: FAMOTIDINE20 MG PO (15:28)
[2023-07-25 16:50] VITALS: BP 128/82; PULSE 82; RESP 18; TEMP 98; O2SAT 100
== END 2023-07-25 19:10 | disposition home or self-care (01) | DRG 690 ==
LOC: ER 12:16 → ERHOLD 15:10 → MED/SURG2 17:04
PROVIDERS: ADMIT Internal Medicine; ATTEND Internal Medicine
DX: N13.6 Pyonephrosis (principal); N30.01 Acute cystitis with hematuria; Z16.20 Resistance to unspecified antibiotic; B96.89 Other specified bacterial agents as the cause of diseases classified elsewhere; Z96.0 Presence of urogenital implants; D50.9 Iron deficiency anemia, unspecified; E55.9 Vitamin D deficiency, unspecified; E66.3 Overweight; Z68.26 Body mass index [BMI] 26.0-26.9, adult; Z85.41 Personal history of malignant neoplasm of cervix uteri; Z87.440 Personal history of urinary (tract) infections; Z86.73 Personal history of transient ischemic attack (TIA), and cerebral infarction without residual deficits; Z20.822 Contact with and (suspected) exposure to COVID-19
CPT/HCPCS: 36415; 51700; 74176; 80048; 80053; 81001; 82948; 85025; 87086; 87186; 94799; 99284; J0696; J1885; J2270; J2405; U0002

== ENCOUNTER → 2023-08-06 | Outpatient (REF) | payer OTHER ==
[~2023-08-06] MED LIST changes: +FAMOTIDINE20 MG PO; +FUROSEMIDE INJ 10 MG/ML 4 ML VIAL ONE
== END ==
LOC: NM 09:43
PROVIDERS: ATTEND Urology
DX: N13.30 Unspecified hydronephrosis (principal)
CPT/HCPCS: 78708; A9562; J1940

== ENCOUNTER 2023-09-14 12:38 | Emergency (ER) | payer OTHER ==
[~2023-09-14] VITALS: Ht 149.9 cm; Wt 59.0 kg
[~2023-09-14 12:38] MED LIST changes: -FUROSEMIDE INJ 10 MG/ML 4 ML VIAL ONE
[2023-09-14 13:27] LABS: BASOPHILS % 0.2 % (0.0-1.0); EOSINOPHILS # (AUTO) 0.1 (0.0-0.4); HEMATOCRIT 34.8 % (34.2-44.1); LYMPHOCYTES # (AUTO) 0.9 (1.0-3.2); LYMPHOCYTES % 19.3 % (18.0-39.1); MEAN CORPUSCULAR HEMOGLOBIN 28.7 pg (28-32); MEAN CORPUSCULAR HGB CONC 31.6 g/dL (31-35); MEAN CORPUSCULAR VOLUME 90.9 fL (81-99); MONOCYTES # (AUTO) 0.4 (0.2-0.8); MONOCYTES % 9.2 % (4.4-11.3); NEUTROPHILS # (AUTO) 3.2 (2.1-6.9); NEUTROPHILS % 68.9 % (38.7-80.0); PLATELET COUNT 350 x10e3/uL (140-360); RED BLOOD COUNT 3.83 x10e6/uL (3.6-5.1); RED CELL DISTRIBUTION WIDTH 13.1 % (11.7-14.4); WHITE BLOOD COUNT 4.57 x10e3/uL (4.8-10.8)
[2023-09-14 13:39] LABS: CLARITY,URINE TURBID (CLEAR); COLOR,URINE RED (YELLOW); GLUCOSE, URINE NEGATIVE (NEGATIVE); KETONES,URINE NEGATIVE (NEGATIVE); LEUKOCYTE ESTERASE ,URINE LARGE (NEGATIVE); NITRITE,URINE NEGATIVE (NEGATIVE); PH,URINE 7 (5 - 7); PROTEIN,URINE DIPSTICK >=300 (NEGATIVE)
[2023-09-14 13:40] LABS: BILIRUBIN,URINE NEGATIVE (NEGATIVE); URINE UROBILINOGEN 0.2 mg/dL (0.2 - 1)
[2023-09-14 13:43] LABS: BACTERIA,URINE MODERATE /HPF; EPITHELIAL CELLS,URINE FEW /LPF; RBC,URINE >50 /HPF (0-5)
[2023-09-14 13:46] LABS: ALBUMIN 3.6 g/dL (3.5-5.0); ALBUMIN/GLOBULIN RATIO 0.8 (0.8-2.0); ANION GAP 13.5 mmol/L (8-16); BILIRUBIN,TOTAL 0.3 mg/dL (0.2-1.2); CALCIUM 9.7 mg/dL (8.4-10.2); CREATININE, SERUM 0.93 mg/dL (0.57-1.11); POTASSIUM 3.5 mmol/L (3.5-5.1); TOTAL PROTEIN 8.1 g/dL (6.5-8.1)
[2023-09-14] MEDS ORDERED: KETOROLAC TROMETHAMINE 30 MG/ML VIAL IV STA (14:40)
[2023-09-14] MEDS ORDERED: CEFDINIR300 MG PO (14:43)
[2023-09-14 15:50] VITALS: BP 104/68; PULSE 76; RESP 16; TEMP 98.6; O2SAT 100
== END 2023-09-14 15:57 | disposition home or self-care (01) ==
LOC: ER 12:44
DX: M54.50 Low back pain, unspecified (principal); N39.0 Urinary tract infection, site not specified; R10.30 Lower abdominal pain, unspecified; Z85.41 Personal history of malignant neoplasm of cervix uteri
CPT/HCPCS: 36415; 74176; 80053; 81001; 85025; 87086; 99284; J1885

== ENCOUNTER 2024-02-27 16:06 | Inpatient (IN) | payer OTHER ==
[~2024-02-27] VITALS: Ht 149.9 cm; Wt 60.3 kg
[~2024-02-27 16:06] MED LIST changes: +CEFUROXIME500 MG PO; +CEPHALEXIN500 MG PO; +DIFLUCAN100 MG PO; +OXYBUTYNIN CHLOR5 M1; +ULTRAM 50MG50 MG PO
[2024-02-27 16:40] VITALS: TEMP 99.2
[2024-02-27] MEDS ORDERED: ONDANSETRON HCL INJ 2MG/ML 2ML 2 MG/ML VIAL IV PRN (18:15)
[2024-02-27 18:16] LABS: BASOPHILS % 0.3 % (0.0-1.0); EOSINOPHILS # (AUTO) 0.1 (0.0-0.4); EOSINOPHILS % 2.5 % (0.0-6.0); HEMATOCRIT 33.8 % (34.2-44.1); HEMOGLOBIN 11.4 g/dL (12.0-16.0); LYMPHOCYTES # (AUTO) 0.9 (1.0-3.2); LYMPHOCYTES % 26.3 % (18.0-39.1); MEAN CORPUSCULAR HEMOGLOBIN 30.2 pg (28-32); MEAN CORPUSCULAR HGB CONC 33.7 g/dL (31-35); MEAN CORPUSCULAR VOLUME 89.4 fL (81-99); MONOCYTES # (AUTO) 0.4 (0.2-0.8); MONOCYTES % 10.5 % (4.4-11.3); NEUTROPHILS # (AUTO) 2.1 (2.1-6.9); NEUTROPHILS % 60.1 % (38.7-80.0); PLATELET COUNT 311 x10e3/uL (140-360); RED BLOOD COUNT 3.78 x10e6/uL (3.6-5.1); RED CELL DISTRIBUTION WIDTH 13.1 % (11.7-14.4); WHITE BLOOD COUNT 3.53 x10e3/uL (4.8-10.8)
[2024-02-27 18:24] LABS: INR 0.84; PROTHROMBIN TIME 12.1 seconds (11.9-14.5)
[2024-02-27 18:25] LABS: PARTIAL THROMBOPLASTIN TIME 27.1 seconds (23.8-35.5)
[2024-02-27 18:31] LABS: CREATINE KINASE 52 IU/L (29-168)
[2024-02-27 18:33] LABS: ALBUMIN 3.5 g/dL (3.5-5.0); ANION GAP 11.8 mmol/L (8-16); CALCIUM 9.1 mg/dL (8.4-10.2); CREATININE, SERUM 0.83 mg/dL (0.57-1.11); MAGNESIUM 1.9 MG/DL (1.3-2.1); POTASSIUM 3.8 mmol/L (3.5-5.1)
[2024-02-27 18:43] LABS: TROPONIN I < 0.001 ng/mL (0-0.300)
[2024-02-27 18:53] LABS: BILIRUBIN,TOTAL 0.2 mg/dL (0.2-1.2)
[2024-02-27 20:28] LABS: BILIRUBIN,URINE NEGATIVE (NEGATIVE); CLARITY,URINE CLOUDY (CLEAR); COLOR,URINE YELLOW (YELLOW); GLUCOSE, URINE NEGATIVE (NEGATIVE); KETONES,URINE NEGATIVE (NEGATIVE); LEUKOCYTE ESTERASE ,URINE SMALL (NEGATIVE); NITRITE,URINE NEGATIVE (NEGATIVE); PH,URINE 6.5 (5 - 7); PROTEIN,URINE DIPSTICK 2+ (NEGATIVE); URINE UROBILINOGEN 0.2 mg/dL (0.2 - 1)
[2024-02-27 20:30] VITALS: PULSE 70; RESP 18
[2024-02-27 20:35] LABS: BACTERIA,URINE MODERATE /HPF; RBC,URINE >50 /HPF (0-5)
[2024-02-27 20:36] LABS: EPITHELIAL CELLS,URINE FEW /LPF; RENAL EPITHELIAL CELLS,URINE FEW
[2024-02-27] MEDS: SODIUM CHLORIDE 0.9% 1000ML 1,000 ML IV SCH (20:45)
[2024-02-27] MEDS: KETOROLAC TROMETHAMINE 30 MG/ML VIAL IV PRN (20:45)
[2024-02-27 21:15] VITALS: BP 136/83; PULSE 61; RESP 18; TEMP 98; O2SAT 98
[2024-02-27 21:30] VITALS: BP 136/83; PULSE 61; RESP 18; TEMP 98; O2SAT 98
[2024-02-28] VITALS (9 sets, daily range): BP systolic 99–136; BP diastolic 67–83; PULSE 61–77; RESP 18–20; TEMP 97.9–98.7; O2SAT 98–100
[2024-02-28 05:47] LABS: BASOPHILS % 0.3 % (0.0-1.0); EOSINOPHILS # (AUTO) 0.1 (0.0-0.4); EOSINOPHILS % 3.7 % (0.0-6.0); HEMATOCRIT 32.1 % (34.2-44.1); HEMOGLOBIN 10.3 g/dL (12.0-16.0); LYMPHOCYTES # (AUTO) 0.9 (1.0-3.2); LYMPHOCYTES % 31.3 % (18.0-39.1); MEAN CORPUSCULAR HEMOGLOBIN 29.1 pg (28-32); MEAN CORPUSCULAR HGB CONC 32.1 g/dL (31-35); MEAN CORPUSCULAR VOLUME 90.7 fL (81-99); MONOCYTES # (AUTO) 0.4 (0.2-0.8); MONOCYTES % 14.1 % (4.4-11.3); NEUTROPHILS # (AUTO) 1.5 (2.1-6.9); NEUTROPHILS % 50.3 % (38.7-80.0); PLATELET COUNT 278 x10e3/uL (140-360); RED BLOOD COUNT 3.54 x10e6/uL (3.6-5.1); RED CELL DISTRIBUTION WIDTH 13.2 % (11.7-14.4); WHITE BLOOD COUNT 2.97 x10e3/uL (4.8-10.8)
[2024-02-28 06:05] LABS: ALBUMIN 2.9 g/dL (3.5-5.0); BILIRUBIN,TOTAL 0.3 mg/dL (0.2-1.2); CALCIUM 8.5 mg/dL (8.4-10.2); CREATININE, SERUM 1.2 mg/dL (0.57-1.11); TOTAL PROTEIN 5.9 g/dL (6.5-8.1)
[2024-02-28] MEDS ORDERED: ACETAMINOPHEN 325 MG TAB PO PRN (10:30)
[2024-02-28] MEDS: TRAMADOL HCL 50 MG TAB PO PRN (14:36)
[2024-02-28] MEDS: OXYBUTYNIN CHLORIDE XL 5 MG TAB PO SCH (16:45)
[2024-02-28] MEDS: ATORVASTATIN 10 MG TAB PO SCH (20:15)
[2024-02-28] MEDS: ONDANSETRON HCL INJ 2MG/ML 2ML 2 MG/ML VIAL IV PRN (21:53)
[2024-02-28] MEDS: Morphine 4mg INJECTION 4 MG/ML INJ IV PRN (21:53)
[2024-02-29] VITALS (8 sets, daily range): BP systolic 106–124; BP diastolic 66–75; PULSE 63–82; RESP 18; TEMP 97.9–98.3; O2SAT 97–100
[2024-02-29] MEDS: KETOROLAC TROMETHAMINE 30 MG/ML VIAL IV PRN (03:46)
[2024-02-29 06:26] LABS: BASOPHILS % 0.2 % (0.0-1.0); EOSINOPHILS # (AUTO) 0.1 (0.0-0.4); EOSINOPHILS % 2.5 % (0.0-6.0); HEMATOCRIT 30.7 % (34.2-44.1); HEMOGLOBIN 9.9 g/dL (12.0-16.0); LYMPHOCYTES # (AUTO) 0.8 (1.0-3.2); LYMPHOCYTES % 20.7 % (18.0-39.1); MEAN CORPUSCULAR HEMOGLOBIN 29.3 pg (28-32); MEAN CORPUSCULAR HGB CONC 32.2 g/dL (31-35); MEAN CORPUSCULAR VOLUME 90.8 fL (81-99); MONOCYTES # (AUTO) 0.4 (0.2-0.8); MONOCYTES % 9.6 % (4.4-11.3); NEUTROPHILS # (AUTO) 2.7 (2.1-6.9); NEUTROPHILS % 66.8 % (38.7-80.0); PLATELET COUNT 261 x10e3/uL (140-360); RED BLOOD COUNT 3.38 x10e6/uL (3.6-5.1); RED CELL DISTRIBUTION WIDTH 13.2 % (11.7-14.4); WHITE BLOOD COUNT 4.05 x10e3/uL (4.8-10.8)
[2024-02-29 07:05] LABS: ANION GAP 12.2 mmol/L (8-16); CALCIUM 8.4 mg/dL (8.4-10.2); CREATININE, SERUM 0.78 mg/dL (0.57-1.11); POTASSIUM 4.2 mmol/L (3.5-5.1)
[2024-02-29] MEDS ORDERED: PIPERACILLIN/TAZOBACTAM 3.375 GM VIAL ONE (08:19)
[2024-02-29] MEDS: AMLODIPINE BESYLATE 10 MG TAB PO SCH (08:46)
[2024-03-01] VITALS (7 sets, daily range): BP systolic 100–131; BP diastolic 62–86; PULSE 63–96; RESP 12–18; TEMP 97.5–98.8; O2SAT 96–100
[2024-03-01] MEDS: FLUCONAZOLE 200 MG/100 ML 100 ML IV SCH (18:28)
[2024-03-02] VITALS: BP 113/72; PULSE 68; RESP 16; TEMP 98.5; O2SAT 100
[2024-03-02 04:00] VITALS: BP 106/66; PULSE 80; RESP 16; TEMP 98.3; O2SAT 100
[2024-03-02 05:24] LABS: BASOPHILS % 0.7 % (0.0-1.0); EOSINOPHILS # (AUTO) 0.2 (0.0-0.4); EOSINOPHILS % 3.8 % (0.0-6.0); HEMATOCRIT 37.8 % (34.2-44.1); HEMOGLOBIN 11.7 g/dL (12.0-16.0); LYMPHOCYTES # (AUTO) 1.8 (1.0-3.2); LYMPHOCYTES % 31.6 % (18.0-39.1); MEAN CORPUSCULAR HEMOGLOBIN 28.9 pg (28-32); MEAN CORPUSCULAR VOLUME 93.3 fL (81-99); MONOCYTES # (AUTO) 0.4 (0.2-0.8); MONOCYTES % 7.6 % (4.4-11.3); NEUTROPHILS # (AUTO) 3.1 (2.1-6.9); NEUTROPHILS % 55.9 % (38.7-80.0); PLATELET COUNT 198 x10e3/uL (140-360); RED BLOOD COUNT 4.05 x10e6/uL (3.6-5.1); RED CELL DISTRIBUTION WIDTH 13.5 % (11.7-14.4); WHITE BLOOD COUNT 5.54 x10e3/uL (4.8-10.8)
[2024-03-02 06:00] LABS: ANION GAP 13.1 mmol/L (8-16); CALCIUM 8.6 mg/dL (8.4-10.2); CREATININE, SERUM 0.83 mg/dL (0.57-1.11); POTASSIUM 4.1 mmol/L (3.5-5.1)
[2024-03-02 07:21] VITALS: BP 114/75; PULSE 84; RESP 18; TEMP 98.2; O2SAT 98
[2024-03-02 08:45] VITALS: BP 114/75; PULSE 84; RESP 18; TEMP 98.2; O2SAT 98
[2024-03-02] MEDS: SODIUM CHLORIDE 0.9% 1000ML 1,000 ML IV SCH (09:00)
[2024-03-02 09:49] VITALS: BP 114/75
== END 2024-03-02 12:29 | disposition home or self-care (01) | DRG 699 ==
LOC: ER 16:58 → ERHOLD 18:06 → MED/SURG 21:18 → MED/SURG3 02-28 17:51
PROVIDERS: ADMIT Internal Medicine; ATTEND Internal Medicine
DX: T83.510A Infection and inflammatory reaction due to cystostomy catheter, initial encounter (principal); B37.49 Other urogenital candidiasis; N13.6 Pyonephrosis; T83.192A Other mechanical complication of indwelling ureteral stent, initial encounter; D63.8 Anemia in other chronic diseases classified elsewhere; E86.0 Dehydration; I10 Essential (primary) hypertension; R31.0 Gross hematuria; Z11.52 Encounter for screening for COVID-19; B96.89 Other specified bacterial agents as the cause of diseases classified elsewhere; Z96.0 Presence of urogenital implants; Z85.41 Personal history of malignant neoplasm of cervix uteri; Z90.49 Acquired absence of other specified parts of digestive tract; Z90.710 Acquired absence of both cervix and uterus; Z88.3 Allergy status to other anti-infective agents; Z91.013 Allergy to seafood; Z91.018 Allergy to other foods; Y83.3 Surgical operation with formation of external stoma as the cause of abnormal reaction of the patient, or of later complication, without mention of misadventure at the time of the procedure; Y83.1 Surgical operation with implant of artificial internal device as the cause of abnormal reaction of the patient, or of later complication, without mention of misadventure at the time of the procedure
CPT/HCPCS: 36415; 74176; 80048; 80053; 81001; 82550; 83735; 84484; 85025; 85610; 85730; 87040; 87086; 99284; J1450; J1885; J2270; J2405; J2543; J7030; U0002

== ENCOUNTER → 2024-04-02 | Day surgery (SDC) | payer OTHER ==
[~2024-04-02] MED LIST changes: +BOTULINUM TOXIN TYPE A 100 UNIT VIAL IM ONE; +FENTANYL CITRATE/PF 100MCG/2 ML INJ ONE; +KETOROLAC TROMETHAMINE 30 MG/ML VIAL ONE; +LIDOCAINE HCL 2% LOCAL INJ 5 ML SDV VIAL INJ ONE; +LYRICA75 MG PO; +MIDAZOLAM HCL 2 MG/2 ML VIAL ONE; +NALOXONE HCL INJ 0.4 MG/ML AMP ONE; +ONDANSETRON HCL INJ 2MG/ML 2ML 2 MG/ML VIAL ONE; +PROPOFOL IV EMULSION 10 MG/ML 20 ML VIAL ONE; +SEVOFLURANE INHAL SOLN 250 ML PEN BTL ONE
[2024-04-02] MEDS: LACTATED RINGER'S 1,000 ML ONE (07:08)
[2024-04-02] MEDS: GENTAMICIN 80MG/NS 100 ML 100 ML IV ONE (07:09)
[2024-04-02] MEDS: PIPERACILLIN/TAZOBACTAM 3.375 GM VIAL ONE (07:11)
[2024-04-02 07:34] LABS: BASOPHILS % 0.4 % (0.0-1.0); EOSINOPHILS # (AUTO) 0.2 (0.0-0.4); EOSINOPHILS % 2.9 % (0.0-6.0); LYMPHOCYTES # (AUTO) 1.3 (1.0-3.2); MEAN CORPUSCULAR HEMOGLOBIN 29.9 pg (28-32); MEAN CORPUSCULAR HGB CONC 33.3 g/dL (31-35); MEAN CORPUSCULAR VOLUME 89.6 fL (81-99); MONOCYTES # (AUTO) 0.5 (0.2-0.8); MONOCYTES % 9.5 % (4.4-11.3); NEUTROPHILS # (AUTO) 3.2 (2.1-6.9); NEUTROPHILS % 61.8 % (38.7-80.0); PLATELET COUNT 325 x10e3/uL (140-360); RED BLOOD COUNT 4.02 x10e6/uL (3.6-5.1); RED CELL DISTRIBUTION WIDTH 13.2 % (11.7-14.4); WHITE BLOOD COUNT 5.15 x10e3/uL (4.8-10.8)
[2024-04-02 07:43] LABS: ANION GAP 12.8 mmol/L (8-16); CALCIUM 9.2 mg/dL (8.4-10.2); CREATININE, SERUM 0.91 mg/dL (0.57-1.11); POTASSIUM 3.8 mmol/L (3.5-5.1)
[2024-04-02] MEDS: FLUCONAZOLE 200 MG/100 ML 100 ML IV ONE (08:19)
[2024-04-02] MEDS: PHENAZOPYRIDINE HCL 100 MG TAB ONE (10:57)
[2024-04-02 12:15] VITALS: BP 127/65; PULSE 73; RESP 18; O2SAT 97
== END | disposition home or self-care (01) ==
LOC: OR 05:36
PROVIDERS: ATTEND Urology
DX: N13.5 Crossing vessel and stricture of ureter without hydronephrosis (principal); N13.30 Unspecified hydronephrosis; R33.8 Other retention of urine; Z43.5 Encounter for attention to cystostomy; Z46.6 Encounter for fitting and adjustment of urinary device; N39.0 Urinary tract infection, site not specified; N31.9 Neuromuscular dysfunction of bladder, unspecified; N39.46 Mixed incontinence; N81.10 Cystocele, unspecified; N81.6 Rectocele; N95.2 Postmenopausal atrophic vaginitis; C53.9 Malignant neoplasm of cervix uteri, unspecified; D64.9 Anemia, unspecified; J45.909 Unspecified asthma, uncomplicated; I10 Essential (primary) hypertension; K21.9 Gastro-esophageal reflux disease without esophagitis; Z91.041 Radiographic dye allergy status; Z79.60 Long term (current) use of unspecified immunomodulators and immunosuppressants; Z79.899 Other long term (current) drug therapy; Z92.3 Personal history of irradiation
CPT/HCPCS: 36415; 51705; 52332; 74420; 80048; 85025; 87086; 93005; C1758; C1769; C2617; J0587; J1450; J1580; J1885; J2001; J2250; J2310; J2405; J2543; J2704; J3010; J7121

== ENCOUNTER 2024-05-01 17:31 | Emergency (ER) | payer OTHER ==
[~2024-05-01] VITALS: Ht 149.9 cm; Wt 60.3 kg
[~2024-05-01 17:31] MED LIST changes: -BOTULINUM TOXIN TYPE A 100 UNIT VIAL IM ONE; -FENTANYL CITRATE/PF 100MCG/2 ML INJ ONE; -KETOROLAC TROMETHAMINE 30 MG/ML VIAL ONE; -LIDOCAINE HCL 2% LOCAL INJ 5 ML SDV VIAL INJ ONE; -MIDAZOLAM HCL 2 MG/2 ML VIAL ONE; -NALOXONE HCL INJ 0.4 MG/ML AMP ONE; -ONDANSETRON HCL INJ 2MG/ML 2ML 2 MG/ML VIAL ONE; -PROPOFOL IV EMULSION 10 MG/ML 20 ML VIAL ONE; -SEVOFLURANE INHAL SOLN 250 ML PEN BTL ONE
[2024-05-01 17:50] VITALS: PULSE 74; RESP 16; TEMP 98.3
[2024-05-01] MEDS: SODIUM CHLORIDE 0.9% 1000ML 1,000 ML IV ONE (18:43)
[2024-05-01 19:18] LABS: CLARITY,URINE CLOUDY (CLEAR); COLOR,URINE YELLOW (YELLOW); LEUKOCYTE ESTERASE ,URINE SMALL (NEGATIVE); NITRITE,URINE NEGATIVE (NEGATIVE); PH,URINE 7 (5 - 7)
[2024-05-01 19:19] LABS: BILIRUBIN,URINE NEGATIVE (NEGATIVE); GLUCOSE, URINE NEGATIVE (NEGATIVE); KETONES,URINE NEGATIVE (NEGATIVE); PROTEIN,URINE DIPSTICK >=300 (NEGATIVE); URINE UROBILINOGEN 0.2 mg/dL (0.2 - 1)
[2024-05-01 19:32] LABS: BACTERIA,URINE FEW /HPF; EPITHELIAL CELLS,URINE FEW /LPF; RBC,URINE >50 /HPF (0-5); TRANSITIONAL EPI CELLS,URINE FEW
[2024-05-01 19:44] LABS: BASOPHILS % 0.2 % (0.0-1.0); EOSINOPHILS # (AUTO) 0.1 (0.0-0.4); EOSINOPHILS % 2.9 % (0.0-6.0); HEMOGLOBIN 13.3 g/dL (12.0-16.0); LYMPHOCYTES # (AUTO) 0.9 (1.0-3.2); LYMPHOCYTES % 22.2 % (18.0-39.1); MEAN CORPUSCULAR HEMOGLOBIN 29.2 pg (28-32); MEAN CORPUSCULAR HGB CONC 32.4 g/dL (31-35); MEAN CORPUSCULAR VOLUME 89.9 fL (81-99); MONOCYTES # (AUTO) 0.3 (0.2-0.8); MONOCYTES % 7.6 % (4.4-11.3); NEUTROPHILS # (AUTO) 2.8 (2.1-6.9); NEUTROPHILS % 66.9 % (38.7-80.0); PLATELET COUNT 337 x10e3/uL (140-360); RED BLOOD COUNT 4.56 x10e6/uL (3.6-5.1); RED CELL DISTRIBUTION WIDTH 13.3 % (11.7-14.4); WHITE BLOOD COUNT 4.19 x10e3/uL (4.8-10.8)
[2024-05-01 20:04] LABS: ALBUMIN 4.2 g/dL (3.5-5.0); ALBUMIN/GLOBULIN RATIO 1.1 (0.8-2.0); ANION GAP 14.4 mmol/L (8-16); BILIRUBIN,TOTAL 0.5 mg/dL (0.2-1.2); CALCIUM 9.7 mg/dL (8.4-10.2); CREATININE, SERUM 0.82 mg/dL (0.57-1.11); TOTAL PROTEIN 8.1 g/dL (6.5-8.1)
[2024-05-01 20:05] LABS: POTASSIUM 3.4 mmol/L (3.5-5.1)
[2024-05-01 21:36] VITALS: BP 138/68; O2SAT 100
== END 2024-05-01 21:05 | disposition home or self-care (01) ==
LOC: VACCPMC 17:34
DX: R19.7 Diarrhea, unspecified (principal); R10.30 Lower abdominal pain, unspecified; I10 Essential (primary) hypertension; Z85.41 Personal history of malignant neoplasm of cervix uteri
CPT/HCPCS: 36415; 74176; 80053; 81001; 83690; 85025; 87086; 99284; J7030

== ENCOUNTER → 2024-07-09 | Day surgery (SDC) | payer OTHER ==
[~2024-07-09] MED LIST changes: +FENTANYL CITRATE/PF 100MCG/2 ML INJ ONE; +GENTAMICIN 120MG/NS 100ML 200 ML ONE; +GENTAMICIN 80MG/NS 100 ML 200 ML IV ONE; +IOPAMIDOL 610MG/1ML 300 MG/ML VIAL IV ONE; +LIDOCAINE HCL 2% LOCAL INJ 5 ML SDV VIAL INJ ONE; +ONDANSETRON HCL 4 MG ORAL DISINTEGRATING TAB ONE; +PROPOFOL IV EMULSION 10 MG/ML 20 ML VIAL ONE
[2024-07-09 07:35] LABS: BASOPHILS % 0.2 % (0.0-1.0); EOSINOPHILS # (AUTO) 0.2 (0.0-0.4); HEMATOCRIT 35.4 % (34.2-44.1); HEMOGLOBIN 11.3 g/dL (12.0-16.0); LYMPHOCYTES # (AUTO) 0.8 (1.0-3.2); LYMPHOCYTES % 15.5 % (18.0-39.1); MEAN CORPUSCULAR HEMOGLOBIN 29.3 pg (28-32); MEAN CORPUSCULAR HGB CONC 31.9 g/dL (31-35); MEAN CORPUSCULAR VOLUME 91.7 fL (81-99); MONOCYTES # (AUTO) 0.6 (0.2-0.8); MONOCYTES % 10.6 % (4.4-11.3); NEUTROPHILS # (AUTO) 3.7 (2.1-6.9); NEUTROPHILS % 70.5 % (38.7-80.0); PLATELET COUNT 352 x10e3/uL (140-360); RED BLOOD COUNT 3.86 x10e6/uL (3.6-5.1); RED CELL DISTRIBUTION WIDTH 13.3 % (11.7-14.4); WHITE BLOOD COUNT 5.28 x10e3/uL (4.8-10.8)
[2024-07-09] MEDS: LACTATED RINGER'S 1,000 ML ONE (07:43)
[2024-07-09 07:48] LABS: ANION GAP 12.7 mmol/L (8-16); CALCIUM 9.3 mg/dL (8.4-10.2); CREATININE, SERUM 0.82 mg/dL (0.57-1.11); POTASSIUM 3.7 mmol/L (3.5-5.1)
[2024-07-09 10:39] VITALS: TEMP 98.2
[2024-07-09] MEDS: ACETAMINOPHEN 1000 MG/100 ML 100 ML IV ONE (11:07)
[2024-07-09] MEDS: ONDANSETRON HCL INJ 2MG/ML 2ML 2 MG/ML VIAL ONE (11:10)
[2024-07-09] MEDS: PHENAZOPYRIDINE HCL 100 MG TAB ONE (11:16)
[2024-07-09 11:40] VITALS: BP 126/77; PULSE 100; RESP 18; O2SAT 97
[2024-07-09] MEDS: ONDANSETRON HCL 4 MG ORAL DISINTEGRATING TAB PO ONE (11:45)
== END | disposition home or self-care (01) ==
LOC: OR 06:33
PROVIDERS: ATTEND Urology
DX: N13.1 Hydronephrosis with ureteral stricture, not elsewhere classified (principal); Z43.5 Encounter for attention to cystostomy; N81.10 Cystocele, unspecified; N95.2 Postmenopausal atrophic vaginitis; N39.0 Urinary tract infection, site not specified; R33.8 Other retention of urine; N32.89 Other specified disorders of bladder; I12.9 Hypertensive chronic kidney disease with stage 1 through stage 4 chronic kidney disease, or unspecified chronic kidney disease; N18.9 Chronic kidney disease, unspecified; Z91.041 Radiographic dye allergy status; N39.46 Mixed incontinence; C53.9 Malignant neoplasm of cervix uteri, unspecified; J45.909 Unspecified asthma, uncomplicated; K21.9 Gastro-esophageal reflux disease without esophagitis; Z91.013 Allergy to seafood; Z91.018 Allergy to other foods; Z86.73 Personal history of transient ischemic attack (TIA), and cerebral infarction without residual deficits; Z79.899 Other long term (current) drug therapy
CPT/HCPCS: 36415; 51710; 52332; 52341; 74018; 74420; 80048; 85025; 87086; 93005; C1758; C1769; C2617; J0131; J1580 ×2; J2003; J2405; J2704; J3010; J7121; Q0162; Q9967

== ENCOUNTER 2024-09-09 03:17 | Inpatient (IN) | payer OTHER ==
[~2024-09-09] VITALS: Ht 149.9 cm; Wt 62.6 kg
[2024-09-09] VITALS (10 sets, daily range): BP systolic 92–132; BP diastolic 66–80; PULSE 65–100; RESP 16–21; TEMP 97.4–98.4; O2SAT 95–100
[~2024-09-09 03:17] MED LIST changes: -FENTANYL CITRATE/PF 100MCG/2 ML INJ ONE; -GENTAMICIN 120MG/NS 100ML 200 ML ONE; -GENTAMICIN 80MG/NS 100 ML 200 ML IV ONE; -IOPAMIDOL 610MG/1ML 300 MG/ML VIAL IV ONE; -LIDOCAINE HCL 2% LOCAL INJ 5 ML SDV VIAL INJ ONE; -ONDANSETRON HCL 4 MG ORAL DISINTEGRATING TAB ONE; -PROPOFOL IV EMULSION 10 MG/ML 20 ML VIAL ONE
[2024-09-09] MEDS ORDERED: Morphine 4mg INJECTION 4 MG/ML INJ IV PRN (03:45)
[2024-09-09] MEDS ORDERED: ONDANSETRON HCL INJ 2MG/ML 2ML 2 MG/ML VIAL IV PRN (03:45)
[2024-09-09 03:51] LABS: BASOPHILS % 0.4 % (0.0-1.0); EOSINOPHILS # (AUTO) 0.2 (0.0-0.4); EOSINOPHILS % 3.3 % (0.0-6.0); HEMATOCRIT 39.2 % (34.2-44.1); HEMOGLOBIN 12.1 g/dL (12.0-16.0); LYMPHOCYTES % 19.8 % (18.0-39.1); MEAN CORPUSCULAR HEMOGLOBIN 29.4 pg (28-32); MEAN CORPUSCULAR HGB CONC 30.9 g/dL (31-35); MEAN CORPUSCULAR VOLUME 95.4 fL (81-99); MONOCYTES # (AUTO) 0.5 (0.2-0.8); MONOCYTES % 9.6 % (4.4-11.3); NEUTROPHILS # (AUTO) 3.5 (2.1-6.9); NEUTROPHILS % 66.5 % (38.7-80.0); PLATELET COUNT 398 x10e3/uL (140-360); RED BLOOD COUNT 4.11 x10e6/uL (3.6-5.1)
[2024-09-09] MEDS: MEROPENEM 1 GM in SODIUM CHLORIDE 0.9% 100 ML IV SCH ×2 (03:55→12:10)
[2024-09-09] MEDS: SODIUM CHLORIDE 0.9% 1000ML 1,000 ML IV ONE (03:55)
[2024-09-09 04:07] LABS: BILIRUBIN,URINE NEGATIVE (NEGATIVE); CLARITY,URINE CLOUDY (CLEAR); COLOR,URINE YELLOW (YELLOW); GLUCOSE, URINE NEGATIVE (NEGATIVE); KETONES,URINE NEGATIVE (NEGATIVE); LEUKOCYTE ESTERASE ,URINE LARGE (NEGATIVE); NITRITE,URINE NEGATIVE (NEGATIVE); PH,URINE 6.5 (5 - 7); PROTEIN,URINE DIPSTICK >=300 (NEGATIVE); URINE UROBILINOGEN 0.2 mg/dL (0.2 - 1)
[2024-09-09 04:13] LABS: ALBUMIN 3.9 g/dL (3.5-5.0); ANION GAP 16.7 mmol/L (8-16); BILIRUBIN,TOTAL 0.3 mg/dL (0.2-1.2); CALCIUM 9.8 mg/dL (8.4-10.2); CREATININE, SERUM 0.8 mg/dL (0.57-1.11); POTASSIUM 3.7 mmol/L (3.5-5.1); TOTAL PROTEIN 7.7 g/dL (6.5-8.1)
[2024-09-09 04:17] LABS: BACTERIA,URINE MANY /HPF; EPITHELIAL CELLS,URINE FEW /LPF
[2024-09-09] MEDS: KETOROLAC TROMETHAMINE 30 MG/ML VIAL IV STA (05:19)
[2024-09-09] MEDS ORDERED: MEROPENEM 1 GM in SODIUM CHLORIDE 0.9% 100 ML IV SCH (14:00)
[2024-09-09] MEDS: KETOROLAC TROMETHAMINE 30 MG/ML VIAL IV PRN (17:33)
[2024-09-10] VITALS (8 sets, daily range): BP systolic 113–124; BP diastolic 68–84; PULSE 70–87; RESP 17–18; TEMP 97.7–98.6; O2SAT 97–100
[2024-09-10 06:42] LABS: BASOPHILS % 0.2 % (0.0-1.0); EOSINOPHILS # (AUTO) 0.2 (0.0-0.4); EOSINOPHILS % 3.5 % (0.0-6.0); HEMATOCRIT 34.6 % (34.2-44.1); HEMOGLOBIN 10.8 g/dL (12.0-16.0); LYMPHOCYTES # (AUTO) 0.9 (1.0-3.2); LYMPHOCYTES % 20.3 % (18.0-39.1); MEAN CORPUSCULAR HEMOGLOBIN 29.5 pg (28-32); MEAN CORPUSCULAR HGB CONC 31.2 g/dL (31-35); MEAN CORPUSCULAR VOLUME 94.5 fL (81-99); MONOCYTES # (AUTO) 0.5 (0.2-0.8); MONOCYTES % 11.3 % (4.4-11.3); NEUTROPHILS # (AUTO) 2.9 (2.1-6.9); NEUTROPHILS % 64.5 % (38.7-80.0); PLATELET COUNT 322 x10e3/uL (140-360); RED BLOOD COUNT 3.66 x10e6/uL (3.6-5.1); RED CELL DISTRIBUTION WIDTH 12.9 % (11.7-14.4); WHITE BLOOD COUNT 4.53 x10e3/uL (4.8-10.8)
[2024-09-10 07:07] LABS: ANION GAP 12.6 mmol/L (8-16); BILIRUBIN,TOTAL 0.2 mg/dL (0.2-1.2); CALCIUM 9.4 mg/dL (8.4-10.2); CREATININE, SERUM 0.72 mg/dL (0.57-1.11); POTASSIUM 3.6 mmol/L (3.5-5.1)
[2024-09-11] VITALS (7 sets, daily range): BP systolic 113–127; BP diastolic 63–82; PULSE 61–84; RESP 16–18; TEMP 97.7–98.1; O2SAT 99–100
[2024-09-12] VITALS (8 sets, daily range): BP systolic 106–126; BP diastolic 67–86; PULSE 71–84; RESP 16–18; TEMP 97.5–98; O2SAT 100
[2024-09-12] MEDS: ACETAMINOPHEN 325 MG TAB PO PRN (12:11)
[2024-09-13 00:06] VITALS: BP 121/71; PULSE 69; RESP 18; TEMP 97.5; O2SAT 100
[2024-09-13 04:05] VITALS: BP 98/70; PULSE 70; RESP 16; TEMP 97.6; O2SAT 100
[2024-09-13 08:00] VITALS: BP 139/83; PULSE 75; RESP 17; TEMP 97.8; O2SAT 100
[2024-09-13 08:43] VITALS: BP 139/83; PULSE 75; RESP 17; TEMP 97.8; O2SAT 100
[2024-09-13 12:00] VITALS: BP 101/78; PULSE 80; RESP 16; TEMP 98.1; O2SAT 100
[2024-09-13] MEDS ORDERED: CIPRO500 MG PO (12:00)
[2024-09-13] MEDS ORDERED: CELEBREX100 MG PO (12:00)
[2024-09-13] MEDS ORDERED: CYCLOBENZAPRINE5 MG PO (12:01)
== END 2024-09-13 15:32 | disposition home or self-care (01) | DRG 699 ==
LOC: ER 03:27 → ERHOLD 03:49 → MED/SURG3 15:24
PROVIDERS: ADMIT Internal Medicine; ATTEND Internal Medicine
DX: T83.511A Infection and inflammatory reaction due to indwelling urethral catheter, initial encounter (principal); C79.9 Secondary malignant neoplasm of unspecified site; Z16.24 Resistance to multiple antibiotics; N39.0 Urinary tract infection, site not specified; T83.84XA Pain due to genitourinary prosthetic devices, implants and grafts, initial encounter; I10 Essential (primary) hypertension; Y83.3 Surgical operation with formation of external stoma as the cause of abnormal reaction of the patient, or of later complication, without mention of misadventure at the time of the procedure; Y92.009 Unspecified place in unspecified non-institutional (private) residence as the place of occurrence of the external cause; B96.5 Pseudomonas (aeruginosa) (mallei) (pseudomallei) as the cause of diseases classified elsewhere; N31.9 Neuromuscular dysfunction of bladder, unspecified; R31.29 Other microscopic hematuria; Z96.0 Presence of urogenital implants; C53.9 Malignant neoplasm of cervix uteri, unspecified; D63.8 Anemia in other chronic diseases classified elsewhere; Z71.3 Dietary counseling and surveillance; Z68.27 Body mass index [BMI] 27.0-27.9, adult; Z90.710 Acquired absence of both cervix and uterus; Z92.21 Personal history of antineoplastic chemotherapy; Z92.3 Personal history of irradiation; Z71.81 Spiritual or religious counseling
CPT/HCPCS: 36415; 80053; 81001; 85025; 87040; 87086; 87186; 99252; 99283; J1885; J2185; J7030; J7050

== ENCOUNTER 2024-09-17 20:51 | Inpatient (IN) | payer OTHER ==
[~2024-09-17] VITALS: Ht 149.9 cm; Wt 62.2 kg
[~2024-09-17 20:51] MED LIST changes: +CELEBREX100 MG PO; +CYCLOBENZAPRINE5 MG PO
[2024-09-17 22:10] LABS: BASOPHILS % 0.2 % (0.0-1.0); EOSINOPHILS # (AUTO) 0.1 (0.0-0.4); EOSINOPHILS % 2.9 % (0.0-6.0); HEMATOCRIT 34.4 % (34.2-44.1); HEMOGLOBIN 10.7 g/dL (12.0-16.0); LYMPHOCYTES % 21.2 % (18.0-39.1); MEAN CORPUSCULAR HEMOGLOBIN 29.4 pg (28-32); MEAN CORPUSCULAR HGB CONC 31.1 g/dL (31-35); MEAN CORPUSCULAR VOLUME 94.5 fL (81-99); MONOCYTES # (AUTO) 0.5 (0.2-0.8); MONOCYTES % 11.1 % (4.4-11.3); NEUTROPHILS # (AUTO) 3.1 (2.1-6.9); NEUTROPHILS % 64.4 % (38.7-80.0); PLATELET COUNT 309 x10e3/uL (140-360); RED BLOOD COUNT 3.64 x10e6/uL (3.6-5.1); RED CELL DISTRIBUTION WIDTH 12.9 % (11.7-14.4); WHITE BLOOD COUNT 4.77 x10e3/uL (4.8-10.8)
[2024-09-17 22:26] LABS: ALBUMIN 3.3 g/dL (3.5-5.0); ALBUMIN/GLOBULIN RATIO 0.9 (0.8-2.0); ANION GAP 13.8 mmol/L (8-16); BILIRUBIN,TOTAL 0.2 mg/dL (0.2-1.2); CALCIUM 9.2 mg/dL (8.4-10.2); CREATININE, SERUM 0.8 mg/dL (0.57-1.11); POTASSIUM 3.8 mmol/L (3.5-5.1); TOTAL PROTEIN 6.8 g/dL (6.5-8.1)
[2024-09-17 23:23] LABS: CLARITY,URINE CLOUDY (CLEAR); COLOR,URINE PINK (YELLOW); GLUCOSE, URINE NEGATIVE (NEGATIVE); LEUKOCYTE ESTERASE ,URINE LARGE (NEGATIVE); NITRITE,URINE NEGATIVE (NEGATIVE); PH,URINE 6 (5 - 7); PROTEIN,URINE DIPSTICK >=300 (NEGATIVE)
[2024-09-17 23:24] LABS: BILIRUBIN,URINE NEGATIVE (NEGATIVE); KETONES,URINE NEGATIVE (NEGATIVE); URINE UROBILINOGEN 0.2 mg/dL (0.2 - 1)
[2024-09-17 23:37] LABS: BACTERIA,URINE MANY /HPF; EPITHELIAL CELLS,URINE MODERATE /LPF; RBC,URINE >50 /HPF (0-5); TRANSITIONAL EPI CELLS,URINE FEW; WBC,URINE (MAN) >50 /HPF (0-5)
[2024-09-18] VITALS (12 sets, daily range): BP systolic 107–138; BP diastolic 60–84; PULSE 70–84; RESP 15–20; TEMP 97.8–98.3; O2SAT 98–100
[2024-09-18] MEDS ORDERED: SODIUM CHLORIDE FLUSH 10 ML SYR INJ PRN (00:15)
[2024-09-18] MEDS ORDERED: BENZONATATE 100 MG CAP PO PRN (01:15)
[2024-09-18] MEDS ORDERED: SIMETHICONE 80 MG CHEW PO PRN (01:15)
[2024-09-18] MEDS ORDERED: ACETAMINOPHEN 325 MG TAB PO PRN (01:15)
[2024-09-18] MEDS ORDERED: POTASSIUM CHLORIDE 20 MEQ TAB CR PO PRN (01:15)
[2024-09-18] MEDS ORDERED: DEXTROSE 50% SYRINGE 50 ML IV PRN (01:15)
[2024-09-18] MEDS ORDERED: DOCUSATE SODIUM 100 MG CAP PO PRN (01:15)
[2024-09-18] MEDS ORDERED: MELATONIN 5 MG TABLET PO PRN (01:15)
[2024-09-18] MEDS ORDERED: LIDOCAINE 4% PATCH TP PRN (01:15)
[2024-09-18] MEDS ORDERED: ALBUTEROL/IPRATROPIUM 3 ML NEB NEB PRN (01:15)
[2024-09-18] MEDS ORDERED: HYDRALAZINE HCL 20 MG/ML VIAL IV PRN (01:15)
[2024-09-18] MEDS ORDERED: DIPHENHYDRAMINE HCL 25 MG CAP PO PRN (01:15)
[2024-09-18] MEDS: Morphine 4mg INJECTION 4 MG/ML INJ IV PRN (02:16)
[2024-09-18] MEDS: SODIUM CHLORIDE 0.9% 1000ML 1,000 ML IV SCH (02:16)
[2024-09-18] MEDS: ONDANSETRON HCL INJ 2MG/ML 2ML 2 MG/ML VIAL IV PRN (02:17)
[2024-09-18 06:25] LABS: BASOPHILS % 0.2 % (0.0-1.0); EOSINOPHILS # (AUTO) 0.2 (0.0-0.4); EOSINOPHILS % 2.8 % (0.0-6.0); HEMATOCRIT 33.7 % (34.2-44.1); HEMOGLOBIN 10.3 g/dL (12.0-16.0); LYMPHOCYTES # (AUTO) 0.8 (1.0-3.2); LYMPHOCYTES % 14.7 % (18.0-39.1); MEAN CORPUSCULAR HEMOGLOBIN 29.3 pg (28-32); MEAN CORPUSCULAR HGB CONC 30.6 g/dL (31-35); MONOCYTES # (AUTO) 0.6 (0.2-0.8); NEUTROPHILS # (AUTO) 3.8 (2.1-6.9); NEUTROPHILS % 71.1 % (38.7-80.0); PLATELET COUNT 281 x10e3/uL (140-360); RED BLOOD COUNT 3.51 x10e6/uL (3.6-5.1); WHITE BLOOD COUNT 5.29 x10e3/uL (4.8-10.8)
[2024-09-18 06:40] LABS: ALBUMIN 3.1 g/dL (3.5-5.0); ALBUMIN/GLOBULIN RATIO 0.9 (0.8-2.0); ANION GAP 13.7 mmol/L (8-16); BILIRUBIN,TOTAL 0.3 mg/dL (0.2-1.2); CALCIUM 8.9 mg/dL (8.4-10.2); CREATININE, SERUM 0.72 mg/dL (0.57-1.11); POTASSIUM 3.7 mmol/L (3.5-5.1); TOTAL PROTEIN 6.4 g/dL (6.5-8.1)
[2024-09-18] MEDS: PANTOPRAZOLE SOD 40 MG TABEC PO SCH (09:08)
[2024-09-18] MEDS: ACETAMINOPHEN 325 MG TAB PO PRN (09:12)
[2024-09-18] MEDS: PREGABALIN 25 MG CAP PO SCH (17:26)
[2024-09-18] MEDS: ENOXAPARIN SOD INJ 40 MG/0.4 ML SYR SC SCH (17:26)
[2024-09-18] MEDS: KETOROLAC TROMETHAMINE 30 MG/ML VIAL IV SCH (21:32)
[2024-09-18] MEDS: ATORVASTATIN 10 MG TAB PO SCH (21:32)
[2024-09-19] VITALS (9 sets, daily range): BP systolic 101–137; BP diastolic 63–80; PULSE 70–83; RESP 18–21; TEMP 97.7–98.6; O2SAT 96–100
[2024-09-19] MEDS: OXYBUTYNIN CHLORIDE XL 5 MG TAB PO SCH (09:00)
[2024-09-19] MEDS: AMLODIPINE BESYLATE 10 MG TAB PO SCH (09:01)
[2024-09-19] MEDS ORDERED: KETOROLAC TROMETHAMINE 30 MG/ML VIAL IV PRN (15:45)
[2024-09-19] MEDS: FLUCONAZOLE 100 MG/NS 50 ML 50 ML IV SCH (17:02)
[2024-09-20] VITALS (9 sets, daily range): BP systolic 104–128; BP diastolic 63–80; PULSE 61–81; RESP 16–20; TEMP 97.9–98.4; O2SAT 97–100
[2024-09-20 06:30] LABS: BASOPHILS % 0.2 % (0.0-1.0); EOSINOPHILS # (AUTO) 0.2 (0.0-0.4); EOSINOPHILS % 4.6 % (0.0-6.0); HEMATOCRIT 32.4 % (34.2-44.1); HEMOGLOBIN 10.1 g/dL (12.0-16.0); LYMPHOCYTES % 23.1 % (18.0-39.1); MEAN CORPUSCULAR HEMOGLOBIN 29.3 pg (28-32); MEAN CORPUSCULAR HGB CONC 31.2 g/dL (31-35); MEAN CORPUSCULAR VOLUME 93.9 fL (81-99); MONOCYTES # (AUTO) 0.4 (0.2-0.8); MONOCYTES % 10.7 % (4.4-11.3); NEUTROPHILS # (AUTO) 2.5 (2.1-6.9); NEUTROPHILS % 61.2 % (38.7-80.0); PLATELET COUNT 286 x10e3/uL (140-360); RED BLOOD COUNT 3.45 x10e6/uL (3.6-5.1); RED CELL DISTRIBUTION WIDTH 12.5 % (11.7-14.4); WHITE BLOOD COUNT 4.12 x10e3/uL (4.8-10.8)
[2024-09-20 06:56] LABS: CREATININE, SERUM 0.74 mg/dL (0.57-1.11)
[2024-09-21] VITALS (11 sets, daily range): BP systolic 109–118; BP diastolic 66–77; PULSE 67–84; RESP 18–20; TEMP 97.2–98.3; O2SAT 95–100
[2024-09-21] MEDS: CYCLOBENZAPRINE HCL 10 MG TAB PO PRN (00:11)
[2024-09-21 07:04] LABS: BASOPHILS % 0.2 % (0.0-1.0); EOSINOPHILS # (AUTO) 0.2 (0.0-0.4); EOSINOPHILS % 4.7 % (0.0-6.0); HEMOGLOBIN 10.2 g/dL (12.0-16.0); LYMPHOCYTES # (AUTO) 0.8 (1.0-3.2); LYMPHOCYTES % 18.7 % (18.0-39.1); MEAN CORPUSCULAR HEMOGLOBIN 29.5 pg (28-32); MEAN CORPUSCULAR HGB CONC 31.9 g/dL (31-35); MEAN CORPUSCULAR VOLUME 92.5 fL (81-99); MONOCYTES # (AUTO) 0.4 (0.2-0.8); NEUTROPHILS # (AUTO) 2.8 (2.1-6.9); NEUTROPHILS % 66.2 % (38.7-80.0); PLATELET COUNT 304 x10e3/uL (140-360); RED BLOOD COUNT 3.46 x10e6/uL (3.6-5.1); RED CELL DISTRIBUTION WIDTH 12.5 % (11.7-14.4); WHITE BLOOD COUNT 4.22 x10e3/uL (4.8-10.8)
[2024-09-21 07:32] LABS: ANION GAP 14.6 mmol/L (8-16); CALCIUM 9.1 mg/dL (8.4-10.2); CREATININE, SERUM 0.78 mg/dL (0.57-1.11); POTASSIUM 3.6 mmol/L (3.5-5.1)
[2024-09-22] VITALS (8 sets, daily range): BP systolic 107–126; BP diastolic 70–77; PULSE 64–82; RESP 16–18; TEMP 97.5–98.2; O2SAT 96–100
[2024-09-22] MEDS: FLUCONAZOLE 400MG/200ML BAG 200 ML IV SCH (11:44)
[2024-09-22] MEDS ORDERED: LIDOCAINE HCL 2% LOCAL INJ 5 ML SDV VIAL INJ ONE (17:07)
[2024-09-22] MEDS ORDERED: FENTANYL CITRATE/PF 100MCG/2 ML INJ ONE (17:07)
[2024-09-22] MEDS ORDERED: SEVOFLURANE INHAL SOLN 250 ML PEN BTL ONE (17:08)
[2024-09-22] MEDS ORDERED: PROPOFOL IV EMULSION 10 MG/ML 20 ML VIAL ONE (17:08)
[2024-09-22] MEDS ORDERED: ACETAMINOPHEN 1000 MG/100 ML 100 ML IV ONE (19:46)
[2024-09-22] MEDS ORDERED: DEXAMETHASONE SOD PHOS INJ 4 MG/ML SDV ONE (19:49)
[2024-09-22] MEDS ORDERED: KETOROLAC TROMETHAMINE 30 MG/ML VIAL ONE (19:49)
[2024-09-22] MEDS ORDERED: ONDANSETRON HCL INJ 2MG/ML 2ML 2 MG/ML VIAL ONE (19:49)
[2024-09-22] MEDS ORDERED: NALOXONE HCL INJ 0.4 MG/ML AMP ONE (20:02)
[2024-09-22] MEDS ORDERED: VASOPRESSIN INJ 20 UNIT/ML VIAL ONE (20:04)
[2024-09-22] MEDS ORDERED: PHENAZOPYRIDINE HCL 100 MG TAB PO PRN (20:30)
[2024-09-23] VITALS (8 sets, daily range): BP systolic 99–109; BP diastolic 61–72; PULSE 72–86; RESP 17–22; TEMP 97.8–98.4; O2SAT 97–100
[2024-09-23 06:30] LABS: HEMATOCRIT 33.5 % (34.2-44.1); HEMOGLOBIN 10.6 g/dL (12.0-16.0); LYMPHOCYTES # (AUTO) 0.5 (1.0-3.2); MEAN CORPUSCULAR HEMOGLOBIN 29.1 pg (28-32); MEAN CORPUSCULAR HGB CONC 31.6 g/dL (31-35); MONOCYTES # (AUTO) 0.1 (0.2-0.8); MONOCYTES % 1.9 % (4.4-11.3); NEUTROPHILS # (AUTO) 5.2 (2.1-6.9); NEUTROPHILS % 89.9 % (38.7-80.0); PLATELET COUNT 298 x10e3/uL (140-360); RED BLOOD COUNT 3.64 x10e6/uL (3.6-5.1); RED CELL DISTRIBUTION WIDTH 12.4 % (11.7-14.4); WHITE BLOOD COUNT 5.77 x10e3/uL (4.8-10.8)
[2024-09-23 07:01] LABS: ANION GAP 15.1 mmol/L (8-16); CALCIUM 9.3 mg/dL (8.4-10.2); CREATININE, SERUM 0.79 mg/dL (0.57-1.11); POTASSIUM 4.1 mmol/L (3.5-5.1)
== END 2024-09-23 19:22 | disposition home or self-care (01) | DRG 660 ==
LOC: ER 21:28 → ERHOLD 09-18 00:10 → MED/SURG3 09-18 01:31
PROVIDERS: ADMIT Internal Medicine; ATTEND Internal Medicine
PROC: 0TP98DZ Removal of Intraluminal Device from Ureter, Via Natural or Artificial Opening Endoscopic (ICD-10-PCS; 2024-09-22)
PROC: 0TP98DZ Removal of Intraluminal Device from Ureter, Via Natural or Artificial Opening Endoscopic (ICD-10-PCS; 2024-09-22)
PROC: 0T2BX0Z Change Drainage Device in Bladder, External Approach (ICD-10-PCS; 2024-09-22)
PROC: BT141ZZ Fluoroscopy of Kidneys, Ureters and Bladder using Low Osmolar Contrast (ICD-10-PCS; 2024-09-22)
PROC: 0UJH7ZZ Inspection of Vagina and Cul-de-sac, Via Natural or Artificial Opening (ICD-10-PCS; 2024-09-22)
PROC: 0T788DZ Dilation of Bilateral Ureters with Intraluminal Device, Via Natural or Artificial Opening Endoscopic (ICD-10-PCS; principal; 2024-09-22 19:30)
DX: T83.510A Infection and inflammatory reaction due to cystostomy catheter, initial encounter (principal); B37.49 Other urogenital candidiasis; N13.6 Pyonephrosis; E78.5 Hyperlipidemia, unspecified; D64.9 Anemia, unspecified; I10 Essential (primary) hypertension; K76.0 Fatty (change of) liver, not elsewhere classified; N31.9 Neuromuscular dysfunction of bladder, unspecified; R31.9 Hematuria, unspecified; Y84.6 Urinary catheterization as the cause of abnormal reaction of the patient, or of later complication, without mention of misadventure at the time of the procedure; R33.9 Retention of urine, unspecified; N95.2 Postmenopausal atrophic vaginitis; Z93.59 Other cystostomy status; Z96.0 Presence of urogenital implants; Z85.41 Personal history of malignant neoplasm of cervix uteri; Z90.710 Acquired absence of both cervix and uterus; Z90.49 Acquired absence of other specified parts of digestive tract; Z91.041 Radiographic dye allergy status; Z91.013 Allergy to seafood; Z91.018 Allergy to other foods; E66.9 Obesity, unspecified; Z68.27 Body mass index [BMI] 27.0-27.9, adult; Z82.49 Family history of ischemic heart disease and other diseases of the circulatory system
CPT/HCPCS: 36415; 74176; 74420; 80048; 80053; 81001; 85025; 87086; 94799; 99284; C1758; C2617; J0692; J1100; J1450; J1650; J1885; J2003; J2270; J2310; J2405; J7030

== ENCOUNTER 2024-11-16 23:19 | Inpatient (IN) | payer OTHER ==
[~2024-11-16] VITALS: Ht 149.9 cm; Wt 61.2 kg
[2024-11-17] VITALS (8 sets, daily range): BP systolic 107–124; BP diastolic 69–84; PULSE 69–91; RESP 16–18; TEMP 97.8–99.1; O2SAT 97–100
[2024-11-17 00:12] LABS: BASOPHILS % 0.4 % (0.0-1.0); EOSINOPHILS # (AUTO) 0.1 (0.0-0.4); EOSINOPHILS % 2.3 % (0.0-6.0); HEMOGLOBIN 10.8 g/dL (12.0-16.0); LYMPHOCYTES # (AUTO) 0.8 (1.0-3.2); MEAN CORPUSCULAR HEMOGLOBIN 29.6 pg (28-32); MEAN CORPUSCULAR HGB CONC 33.8 g/dL (31-35); MEAN CORPUSCULAR VOLUME 87.7 fL (81-99); MONOCYTES # (AUTO) 0.5 (0.2-0.8); MONOCYTES % 9.3 % (4.4-11.3); NEUTROPHILS # (AUTO) 4.2 (2.1-6.9); NEUTROPHILS % 73.6 % (38.7-80.0); PLATELET COUNT 346 x10e3/uL (140-360); RED BLOOD COUNT 3.65 x10e6/uL (3.6-5.1); RED CELL DISTRIBUTION WIDTH 13.3 % (11.7-14.4); WHITE BLOOD COUNT 5.71 x10e3/uL (4.8-10.8)
[2024-11-17 00:29] LABS: ALBUMIN 3.4 g/dL (3.5-5.0); ALBUMIN/GLOBULIN RATIO 1.1 (0.8-2.0); ANION GAP 13.1 mmol/L (8-16); BILIRUBIN,TOTAL 0.2 mg/dL (0.2-1.2); CALCIUM 8.8 mg/dL (8.4-10.2); CREATININE, SERUM 0.9 mg/dL (0.57-1.11); POTASSIUM 4.1 mmol/L (3.5-5.1); TOTAL PROTEIN 6.4 g/dL (6.5-8.1)
[2024-11-17] MEDS: ONDANSETRON HCL INJ 2MG/ML 2ML 2 MG/ML VIAL IV STA (00:29)
[2024-11-17] MEDS: SODIUM CHLORIDE 0.9% 1000ML 1,000 ML IV STA (00:29)
[2024-11-17] MEDS: KETOROLAC TROMETHAMINE 30 MG/ML VIAL IV STA (00:30)
[2024-11-17 01:53] LABS: CLARITY,URINE CLOUDY (CLEAR); COLOR,URINE YELLOW (YELLOW); GLUCOSE, URINE NEGATIVE (NEGATIVE); LEUKOCYTE ESTERASE ,URINE LARGE (NEGATIVE); NITRITE,URINE POSITIVE (NEGATIVE); PH,URINE 7 (5 - 7); PROTEIN,URINE DIPSTICK 2+ (NEGATIVE)
[2024-11-17 01:54] LABS: BILIRUBIN,URINE NEGATIVE (NEGATIVE); KETONES,URINE NEGATIVE (NEGATIVE); PREGNANCY TEST, URINE NEGATIVE (NEGATIVE); URINE UROBILINOGEN 0.2 mg/dL (0.2 - 1)
[2024-11-17 01:58] LABS: BACTERIA,URINE MANY /HPF; EPITHELIAL CELLS,URINE MODERATE /LPF; RBC,URINE >50 /HPF (0-5); RENAL EPITHELIAL CELLS,URINE FEW; WBC,URINE (MAN) >50 /HPF (0-5)
[2024-11-17] MEDS ORDERED: ONDANSETRON HCL INJ 2MG/ML 2ML 2 MG/ML VIAL IV PRN (02:30)
[2024-11-17] MEDS: SODIUM CHLORIDE 0.9% 1000ML 1,000 ML IV SCH (03:49)
[2024-11-17] MEDS ORDERED: CYCLOBENZAPRINE HCL 10 MG TAB PO PRN (11:15)
[2024-11-17] MEDS: FLUCONAZOLE 100 MG TAB PO SCH (12:00)
[2024-11-17] MEDS ORDERED: SEVOFLURANE INHAL SOLN 250 ML PEN BTL ONE (12:30)
[2024-11-17] MEDS: PREGABALIN 25 MG CAP PO SCH (17:44)
[2024-11-17] MEDS: ATORVASTATIN 10 MG TAB PO SCH (20:27)
[2024-11-17] MEDS: CELECOXIB 100 MG CAP PO PRN (20:27)
[2024-11-18] VITALS (8 sets, daily range): BP systolic 104–125; BP diastolic 62–75; PULSE 63–89; RESP 16–18; TEMP 97.7–98.8; O2SAT 98–100
[2024-11-18 05:35] LABS: BASOPHILS % 0.2 % (0.0-1.0); EOSINOPHILS # (AUTO) 0.2 (0.0-0.4); EOSINOPHILS % 3.6 % (0.0-6.0); HEMOGLOBIN 10.6 g/dL (12.0-16.0); LYMPHOCYTES # (AUTO) 0.9 (1.0-3.2); LYMPHOCYTES % 18.9 % (18.0-39.1); MEAN CORPUSCULAR HEMOGLOBIN 29.6 pg (28-32); MEAN CORPUSCULAR HGB CONC 33.1 g/dL (31-35); MEAN CORPUSCULAR VOLUME 89.4 fL (81-99); MONOCYTES # (AUTO) 0.4 (0.2-0.8); MONOCYTES % 9.2 % (4.4-11.3); NEUTROPHILS # (AUTO) 3.2 (2.1-6.9); NEUTROPHILS % 67.7 % (38.7-80.0); PLATELET COUNT 312 x10e3/uL (140-360); RED BLOOD COUNT 3.58 x10e6/uL (3.6-5.1); RED CELL DISTRIBUTION WIDTH 13.2 % (11.7-14.4); WHITE BLOOD COUNT 4.66 x10e3/uL (4.8-10.8)
[2024-11-18 06:07] LABS: ALBUMIN/GLOBULIN RATIO 1.1 (0.8-2.0); ANION GAP 13.1 mmol/L (8-16); BILIRUBIN,TOTAL 0.3 mg/dL (0.2-1.2); CALCIUM 8.8 mg/dL (8.4-10.2); CREATININE, SERUM 0.79 mg/dL (0.57-1.11); POTASSIUM 4.1 mmol/L (3.5-5.1); TOTAL PROTEIN 5.8 g/dL (6.5-8.1)
[2024-11-18] MEDS: OXYBUTYNIN CHLORIDE XL 5 MG TAB PO SCH (09:15)
[2024-11-18] MEDS: AMLODIPINE BESYLATE 10 MG TAB PO SCH (09:16)
[2024-11-18] MEDS: Vancomycin IV 1 GM in SODIUM CHLORIDE 0.9% 250ML 250 ML IV SCH (10:28)
[2024-11-18] MEDS: DIPHENHYDRAMINE HCL INJ 50 MG/ML VIAL IV PRN (21:47)
[2024-11-19] VITALS (8 sets, daily range): BP systolic 111–139; BP diastolic 63–80; PULSE 61–77; RESP 16–18; TEMP 97.8–98.2; O2SAT 98–100
[2024-11-19] MEDS ORDERED: LIDOCAINE HCL 2% LOCAL INJ 5 ML SDV VIAL INJ ONE (17:55)
[2024-11-19] MEDS ORDERED: PROPOFOL IV EMULSION 50 ML IV ONE (17:55)
[2024-11-19] MEDS ORDERED: FENTANYL CITRATE/PF 100MCG/2 ML INJ ONE (17:58)
[2024-11-19] MEDS ORDERED: PHENAZOPYRIDINE HCL 100 MG TAB PO PRN (18:00)
[2024-11-19] MEDS ORDERED: ONDANSETRON HCL INJ 2MG/ML 2ML 2 MG/ML VIAL ONE (18:47)
[2024-11-19] MEDS ORDERED: DEXAMETHASONE SOD PHOS INJ 4 MG/ML SDV ONE (18:47)
[2024-11-19] MEDS: Morphine 4mg INJECTION 4 MG/ML INJ IV PRN (20:38)
[2024-11-20] VITALS: BP 115/75; PULSE 94; RESP 18; TEMP 98.4; O2SAT 98
[2024-11-20 04:00] VITALS: BP 100/71; PULSE 98; RESP 18; TEMP 98.7; O2SAT 98
[2024-11-20 06:42] LABS: BASOPHILS % 0.1 % (0.0-1.0); LYMPHOCYTES # (AUTO) 0.6 (1.0-3.2); MEAN CORPUSCULAR HEMOGLOBIN 29.4 pg (28-32); MEAN CORPUSCULAR HGB CONC 33.3 g/dL (31-35); MEAN CORPUSCULAR VOLUME 88.2 fL (81-99); MONOCYTES # (AUTO) 0.1 (0.2-0.8); MONOCYTES % 1.4 % (4.4-11.3); NEUTROPHILS # (AUTO) 6.5 (2.1-6.9); NEUTROPHILS % 90.2 % (38.7-80.0); PLATELET COUNT 343 x10e3/uL (140-360); RED BLOOD COUNT 3.74 x10e6/uL (3.6-5.1); RED CELL DISTRIBUTION WIDTH 12.8 % (11.7-14.4); WHITE BLOOD COUNT 7.23 x10e3/uL (4.8-10.8)
[2024-11-20 07:14] LABS: ANION GAP 13.9 mmol/L (8-16); CALCIUM 8.7 mg/dL (8.4-10.2); CREATININE, SERUM 0.96 mg/dL (0.57-1.11); POTASSIUM 3.9 mmol/L (3.5-5.1)
[2024-11-20 08:36] VITALS: BP 112/71; PULSE 92; RESP 17; TEMP 98.2; O2SAT 99
[2024-11-20 09:00] VITALS: BP 112/71; PULSE 92; RESP 17; TEMP 98.2; O2SAT 99
[2024-11-20 10:41] LABS: MAGNESIUM 1.6 MG/DL (1.3-2.1); PHOSPHORUS 2.4 MG/DL (2.3-4.7)
[2024-11-20 11:47] VITALS: BP 107/70; PULSE 82; RESP 17; TEMP 98.2; O2SAT 100
[2024-11-20] MEDS: MAGNESIUM SULFATE 2GM/50ML 50 ML IV ONE (13:18)
[2024-11-20 16:16] VITALS: BP 129/71; PULSE 74; RESP 17; TEMP 98.4; O2SAT 99
[2024-11-20] MEDS ORDERED: BACTRIM DS TAB1 EACH PO (17:46)
[2024-11-20] MEDS ORDERED: ONDANSETRON ODT4 MG PO (17:46)
== END 2024-11-20 21:14 | disposition home or self-care (01) | DRG 660 ==
LOC: ER 23:36 → ERHOLD 11-17 02:19 → MED/SURG 11-17 03:59
PROVIDERS: ADMIT Internal Medicine; ATTEND Internal Medicine
PROC: 0TP98DZ Removal of Intraluminal Device from Ureter, Via Natural or Artificial Opening Endoscopic (ICD-10-PCS; 2024-11-19)
PROC: 0UJH7ZZ Inspection of Vagina and Cul-de-sac, Via Natural or Artificial Opening (ICD-10-PCS; 2024-11-19)
PROC: 0T2BX0Z Change Drainage Device in Bladder, External Approach (ICD-10-PCS; 2024-11-19)
PROC: BT141ZZ Fluoroscopy of Kidneys, Ureters and Bladder using Low Osmolar Contrast (ICD-10-PCS; 2024-11-19)
PROC: 0T788DZ Dilation of Bilateral Ureters with Intraluminal Device, Via Natural or Artificial Opening Endoscopic (ICD-10-PCS; principal; 2024-11-19 18:41)
PROC: 0TP98DZ Removal of Intraluminal Device from Ureter, Via Natural or Artificial Opening Endoscopic (ICD-10-PCS; 2024-11-19 18:41)
DX: T83.593A Infection and inflammatory reaction due to other urinary stents, initial encounter (principal); N13.6 Pyonephrosis; Z16.24 Resistance to multiple antibiotics; B95.8 Unspecified staphylococcus as the cause of diseases classified elsewhere; I10 Essential (primary) hypertension; R33.8 Other retention of urine; N31.9 Neuromuscular dysfunction of bladder, unspecified; N23 Unspecified renal colic; R31.29 Other microscopic hematuria; Y84.2 Radiological procedure and radiotherapy as the cause of abnormal reaction of the patient, or of later complication, without mention of misadventure at the time of the procedure; Z93.51 Cutaneous-vesicostomy status; N95.2 Postmenopausal atrophic vaginitis; Z85.41 Personal history of malignant neoplasm of cervix uteri; Z90.710 Acquired absence of both cervix and uterus; Z90.49 Acquired absence of other specified parts of digestive tract; Z91.041 Radiographic dye allergy status; Z91.018 Allergy to other foods; Z91.013 Allergy to seafood; E66.9 Obesity, unspecified; Z68.27 Body mass index [BMI] 27.0-27.9, adult
CPT/HCPCS: 36415; 74176; 74420; 80048; 80053; 80202; 81001; 81025; 83518; 83690; 83735; 84100; 85025; 87070; 87086; 87186; 99284; C1766; C2617; J1100; J1200; J1885; J2003; J2270; J2405; J2543; J3475; J7030; J7050

== ENCOUNTER 2025-01-25 00:06 | Inpatient (IN) | payer OTHER ==
[2025-01-25] VITALS (7 sets, daily range): BP systolic 107–134; BP diastolic 65–76; PULSE 68–79; RESP 17–21; TEMP 97.5–98.5; O2SAT 98–100
[~2025-01-25] VITALS: Ht 149.9 cm; Wt 61.2 kg
[~2025-01-25 00:06] MED LIST changes: +BACTRIM DS TAB1 EACH PO; +ONDANSETRON ODT4 MG PO; -OXYBUTYNIN CHLOR5 M1; +OXYBUTYNIN CHLOR5 M1 PO
[2025-01-25] MEDS ORDERED: KETOROLAC TROMETHAMINE 30 MG/ML VIAL ONE (00:28)
[2025-01-25] MEDS: KETOROLAC TROMETHAMINE 30 MG/ML VIAL IV STA (00:43)
[2025-01-25] MEDS: ONDANSETRON HCL INJ 2MG/ML 2ML 2 MG/ML VIAL IV STA (00:43)
[2025-01-25] MEDS: SODIUM CHLORIDE 0.9% 1000ML 1,000 ML IV STA (00:44)
[2025-01-25 00:53] LABS: BASOPHILS % 0.2 % (0.0-1.0); EOSINOPHILS # (AUTO) 0.1 (0.0-0.4); EOSINOPHILS % 2.3 % (0.0-6.0); HEMATOCRIT 32.5 % (34.2-44.1); HEMOGLOBIN 11.2 g/dL (12.0-16.0); LYMPHOCYTES # (AUTO) 0.9 (1.0-3.2); LYMPHOCYTES % 17.5 % (18.0-39.1); MEAN CORPUSCULAR HEMOGLOBIN 29.9 pg (28-32); MEAN CORPUSCULAR HGB CONC 34.5 g/dL (31-35); MEAN CORPUSCULAR VOLUME 86.9 fL (81-99); MONOCYTES # (AUTO) 0.5 (0.2-0.8); MONOCYTES % 9.8 % (4.4-11.3); NEUTROPHILS # (AUTO) 3.7 (2.1-6.9); PLATELET COUNT 282 x10e3/uL (140-360); RED BLOOD COUNT 3.74 x10e6/uL (3.6-5.1); RED CELL DISTRIBUTION WIDTH 13.4 % (11.7-14.4); WHITE BLOOD COUNT 5.21 x10e3/uL (4.8-10.8)
[2025-01-25 01:15] LABS: ALBUMIN 3.4 g/dL (3.5-5.0); ANION GAP 13.2 mmol/L (8-16); BILIRUBIN,TOTAL 0.3 mg/dL (0.2-1.2); CALCIUM 9.1 mg/dL (8.4-10.2); CREATININE, SERUM 0.88 mg/dL (0.57-1.11); TOTAL PROTEIN 6.8 g/dL (6.5-8.1)
[2025-01-25 01:17] LABS: BILIRUBIN,URINE SMALL (NEGATIVE); CLARITY,URINE CLOUDY (CLEAR); COLOR,URINE AMBER (YELLOW); GLUCOSE, URINE NEGATIVE (NEGATIVE); KETONES,URINE NEGATIVE (NEGATIVE); LEUKOCYTE ESTERASE ,URINE SMALL (NEGATIVE); NITRITE,URINE POSITIVE (NEGATIVE); PH,URINE 6.5 (5 - 7); PROTEIN,URINE DIPSTICK >=300 (NEGATIVE); URINE UROBILINOGEN 1 mg/dL (0.2 - 1)
[2025-01-25 01:22] LABS: BACTERIA,URINE MODERATE /HPF; EPITHELIAL CELLS,URINE RARE /LPF; RBC,URINE >50 /HPF (0-5); WBC,URINE (MAN) 0-5 /HPF (0-5)
[2025-01-25 01:30] LABS: POTASSIUM 3.2 mmol/L (3.5-5.1)
[2025-01-25] MEDS ORDERED: ONDANSETRON HCL INJ 2MG/ML 2ML 2 MG/ML VIAL IV PRN (02:15)
[2025-01-25] MEDS: SODIUM CHLORIDE 0.9% 1000ML 1,000 ML IV SCH (03:03)
[2025-01-25] MEDS ORDERED: FLUCONAZOLE 100 MG TAB PO PRN (09:15)
[2025-01-25] MEDS ORDERED: CELECOXIB 100 MG CAP PO PRN (09:15)
[2025-01-25] MEDS: KETOROLAC TROMETHAMINE 30 MG/ML VIAL IV PRN (10:26)
[2025-01-25] MEDS: CYCLOBENZAPRINE HCL 10 MG TAB PO PRN (10:29)
[2025-01-25] MEDS: PREGABALIN 25 MG CAP PO SCH (17:06)
[2025-01-25] MEDS: ATORVASTATIN 10 MG TAB PO SCH (20:26)
[2025-01-26] VITALS: BP 110/60; PULSE 70; RESP 20; TEMP 98; O2SAT 98
[2025-01-26 04:00] VITALS: BP 116/60; PULSE 63; RESP 20; TEMP 98; O2SAT 100
[2025-01-26 05:19] LABS: BASOPHILS % 0.3 % (0.0-1.0); EOSINOPHILS # (AUTO) 0.1 (0.0-0.4); EOSINOPHILS % 4.3 % (0.0-6.0); HEMATOCRIT 32.2 % (34.2-44.1); HEMOGLOBIN 10.8 g/dL (12.0-16.0); LYMPHOCYTES # (AUTO) 0.9 (1.0-3.2); LYMPHOCYTES % 29.1 % (18.0-39.1); MEAN CORPUSCULAR HEMOGLOBIN 29.9 pg (28-32); MEAN CORPUSCULAR HGB CONC 33.5 g/dL (31-35); MEAN CORPUSCULAR VOLUME 89.2 fL (81-99); MONOCYTES # (AUTO) 0.4 (0.2-0.8); NEUTROPHILS # (AUTO) 1.7 (2.1-6.9); NEUTROPHILS % 53.3 % (38.7-80.0); PLATELET COUNT 247 x10e3/uL (140-360); RED BLOOD COUNT 3.61 x10e6/uL (3.6-5.1); RED CELL DISTRIBUTION WIDTH 13.2 % (11.7-14.4); WHITE BLOOD COUNT 3.23 x10e3/uL (4.8-10.8)
[2025-01-26 05:43] LABS: ALBUMIN/GLOBULIN RATIO 1.1 (0.8-2.0); ANION GAP 11.7 mmol/L (8-16); BILIRUBIN,TOTAL 0.4 mg/dL (0.2-1.2); CALCIUM 8.4 mg/dL (8.4-10.2); CREATININE, SERUM 0.79 mg/dL (0.57-1.11); POTASSIUM 3.7 mmol/L (3.5-5.1); TOTAL PROTEIN 5.7 g/dL (6.5-8.1)
[2025-01-26 08:30] VITALS: BP 117/72; PULSE 69; RESP 18; TEMP 98.2; O2SAT 100
[2025-01-26] MEDS: AMLODIPINE BESYLATE 10 MG TAB PO SCH (09:00)
[2025-01-26] MEDS: OXYBUTYNIN CHLORIDE XL 5 MG TAB PO SCH (09:22)
[2025-01-26 13:00] VITALS: BP 117/73; PULSE 75; RESP 16; TEMP 98.7; O2SAT 100
[2025-01-26 17:48] VITALS: BP 110/67; PULSE 65; RESP 16; TEMP 98.8; O2SAT 100
[2025-01-26 20:00] VITALS: BP 100/74; PULSE 79; RESP 18; TEMP 98.4; O2SAT 99
[2025-01-27] VITALS: BP 124/69; PULSE 78; RESP 18; TEMP 98; O2SAT 99
[2025-01-27 04:00] VITALS: BP 122/77; PULSE 68; RESP 18; TEMP 98.3; O2SAT 98
[2025-01-27 08:46] VITALS: BP 139/78; PULSE 62; RESP 18; TEMP 98; O2SAT 98
[2025-01-27 10:10] VITALS: BP 139/78; PULSE 62; RESP 18; TEMP 98; O2SAT 98
== END 2025-01-27 12:41 | disposition home or self-care (01) | DRG 699 ==
LOC: ER 00:10 → ERHOLD 02:08 → MED/SURG 04:47
PROVIDERS: ADMIT Internal Medicine; ATTEND Internal Medicine
PROC: 0T2BX0Z Change Drainage Device in Bladder, External Approach (ICD-10-PCS; principal; 2025-01-27)
DX: T83.518A Infection and inflammatory reaction due to other urinary catheter, initial encounter (principal); C79.89 Secondary malignant neoplasm of other specified sites; N13.6 Pyonephrosis; Z16.24 Resistance to multiple antibiotics; B96.5 Pseudomonas (aeruginosa) (mallei) (pseudomallei) as the cause of diseases classified elsewhere; I10 Essential (primary) hypertension; N31.9 Neuromuscular dysfunction of bladder, unspecified; R31.0 Gross hematuria; R33.9 Retention of urine, unspecified; Z87.440 Personal history of urinary (tract) infections; Z85.41 Personal history of malignant neoplasm of cervix uteri; Z90.710 Acquired absence of both cervix and uterus; Z96.0 Presence of urogenital implants; Z91.041 Radiographic dye allergy status; Z91.018 Allergy to other foods; Z91.013 Allergy to seafood; E66.9 Obesity, unspecified; Z68.27 Body mass index [BMI] 27.0-27.9, adult
CPT/HCPCS: 36415; 74176; 80053; 81001; 83690; 85025; 87086; 87186; 99284; J1885; J2405; J2543; J7030

== ENCOUNTER 2025-03-19 14:26 | Inpatient (IN) | payer OTHER ==
[~2025-03-19] VITALS: Ht 149.9 cm; Wt 61.2 kg
[2025-03-19 15:50] LABS: BASOPHILS % 0.2 % (0.0-1.0); EOSINOPHILS % 2.9 % (0.0-6.0); LYMPHOCYTES % 18.5 % (18.0-39.1); MONOCYTES % 9.8 % (4.4-11.3); NEUTROPHILS % 68.4 % (38.7-80.0); RED CELL DISTRIBUTION WIDTH 13.4 % (11.7-14.4)
[2025-03-19 16:03] LABS: INR 0.84
[2025-03-19] MEDS: SODIUM CHLORIDE 0.9% 1000ML 1,000 ML IV STA (16:04)
[2025-03-19] MEDS: KETOROLAC TROMETHAMINE 30 MG/ML VIAL IV STA (16:05)
[2025-03-19 16:15] LABS: EST GLOMERULAR FILTRATION RATE 84.0 ML/MIN (>=60)
[2025-03-19 17:40] LABS: LEUKOCYTE ESTERASE ,URINE SMALL (NEGATIVE); PROTEIN,URINE DIPSTICK >=300 (NEGATIVE); URINE UROBILINOGEN 0.2 mg/dL (0.2 - 1)
[2025-03-19 17:41] LABS: EPITHELIAL CELLS,URINE FEW /LPF; WBC,URINE (MAN) >50 /HPF (0-5)
[2025-03-19] MEDS: MEROPENEM 1 GM in SODIUM CHLORIDE 0.9% 100 ML IV SCH (19:06)
[2025-03-19] MEDS: SODIUM CHLORIDE 0.9% 1000ML 1,000 ML IV SCH (19:38)
[2025-03-19] MEDS: Vancomycin IV 1 GM in SODIUM CHLORIDE 0.9% 250ML 250 ML IV ONE (19:38)
[2025-03-19 19:43] VITALS: PULSE 67; RESP 18; TEMP 97.9
[2025-03-19] MEDS: DIPHENHYDRAMINE HCL 25 MG CAP PO PRN (23:01)
[2025-03-19 23:07] VITALS: BP 154/85; RESP 20; O2SAT 99
[2025-03-19 23:11] VITALS: BP 154/85; PULSE 94; RESP 20; O2SAT 99
[2025-03-19] MEDS: Morphine 4mg INJECTION 4 MG/ML INJ IV PRN (23:27)
[2025-03-20] VITALS (9 sets, daily range): BP systolic 108–154; BP diastolic 68–95; PULSE 63–77; RESP 16–20; TEMP 97.6–98.2; O2SAT 97–100
[2025-03-20] MEDS: ONDANSETRON HCL INJ 2MG/ML 2ML 2 MG/ML VIAL IV PRN (00:02)
[2025-03-20 07:11] LABS: BASOPHILS % 0.3 % (0.0-1.0); EOSINOPHILS % 4.2 % (0.0-6.0); LYMPHOCYTES % 28.2 % (18.0-39.1); MONOCYTES % 13.8 % (4.4-11.3); NEUTROPHILS % 53.5 % (38.7-80.0); RED CELL DISTRIBUTION WIDTH 13.5 % (11.7-14.4)
[2025-03-20 07:40] LABS: EST GLOMERULAR FILTRATION RATE 104.0 ML/MIN (>=60)
[2025-03-20] MEDS ORDERED: NON-FORMULARY MEDICATION (Cyclobenzaprine Hcl (Flexeril) 5 MG) PO PRN (09:30)
[2025-03-20] MEDS: CELECOXIB 100 MG CAP PO PRN (10:50)
[2025-03-20] MEDS: PREGABALIN 25 MG CAP PO SCH (16:23)
[2025-03-20] MEDS: ATORVASTATIN 10 MG TAB PO SCH (21:40)
[2025-03-21] VITALS (8 sets, daily range): BP systolic 113–124; BP diastolic 64–90; PULSE 62–106; RESP 16–18; TEMP 97.5–98.6; O2SAT 94–100
[2025-03-21 05:32] LABS: BASOPHILS % 0.3 % (0.0-1.0); EOSINOPHILS % 3.0 % (0.0-6.0); LYMPHOCYTES % 24.3 % (18.0-39.1); MONOCYTES % 11.6 % (4.4-11.3); NEUTROPHILS % 60.3 % (38.7-80.0); RED CELL DISTRIBUTION WIDTH 13.4 % (11.7-14.4)
[2025-03-21 06:10] LABS: EST GLOMERULAR FILTRATION RATE 85.0 ML/MIN (>=60)
[2025-03-21] MEDS: OXYBUTYNIN CHLORIDE XL 5 MG TAB PO SCH (10:30)
[2025-03-21] MEDS: AMLODIPINE BESYLATE 10 MG TAB PO SCH (10:31)
[2025-03-21] MEDS ORDERED: FENTANYL CITRATE/PF 100MCG/2 ML INJ ONE (10:47)
[2025-03-21] MEDS ORDERED: SEVOFLURANE INHAL SOLN 250 ML PEN BTL ONE (10:47)
[2025-03-21] MEDS ORDERED: MIDAZOLAM HCL 2 MG/2 ML VIAL ONE (10:47)
[2025-03-21] MEDS ORDERED: ACETAMINOPHEN 1000 MG/100 ML 100 ML IV ONE (10:47)
[2025-03-21] MEDS ORDERED: LIDOCAINE HCL 2% LOCAL INJ 5 ML SDV VIAL INJ ONE (10:47)
[2025-03-21] MEDS ORDERED: PROPOFOL IV EMULSION 10 MG/ML 20 ML VIAL ONE (10:47)
[2025-03-21] MEDS ORDERED: ONDANSETRON HCL INJ 2MG/ML 2ML 2 MG/ML VIAL ONE (12:30)
[2025-03-21] MEDS ORDERED: DEXAMETHASONE SOD PHOS INJ 4 MG/ML SDV ONE (12:30)
[2025-03-21] MEDS ORDERED: FAMOTIDINE 20 MG/2 ML VIAL IV ONE (12:30)
[2025-03-21] MEDS: FENTANYL CITRATE/PF 100MCG/2 ML INJ ONE (13:35)
[2025-03-22] VITALS (9 sets, daily range): BP systolic 101–123; BP diastolic 60–77; PULSE 68–100; RESP 15–18; TEMP 97–98.4; O2SAT 95–100
[2025-03-23] VITALS (8 sets, daily range): BP systolic 92–123; BP diastolic 54–85; PULSE 63–86; RESP 16–19; TEMP 97.7–98.4; O2SAT 98–100
[2025-03-23 05:46] LABS: BASOPHILS % 0.2 % (0.0-1.0); EOSINOPHILS % 0.9 % (0.0-6.0); LYMPHOCYTES % 17.0 % (18.0-39.1); MONOCYTES % 7.4 % (4.4-11.3); NEUTROPHILS % 74.0 % (38.7-80.0); RED CELL DISTRIBUTION WIDTH 13.6 % (11.7-14.4)
[2025-03-23 06:19] LABS: EST GLOMERULAR FILTRATION RATE 96.0 ML/MIN (>=60)
[2025-03-24 04:00] VITALS: BP 101/67; PULSE 70; RESP 16; TEMP 98.3; O2SAT 100
[2025-03-24 07:14] VITALS: PULSE 76; RESP 16; O2SAT 96
[2025-03-24 08:00] VITALS: BP 100/73; PULSE 75; RESP 17; TEMP 98.1; O2SAT 100
[2025-03-24 09:00] VITALS: BP 100/73; PULSE 75; RESP 17; TEMP 98.1; O2SAT 100
== END 2025-03-24 10:30 | disposition home or self-care (01) | DRG 660 ==
LOC: ER 14:54 → ERHOLD 18:12 → MED/SURG 21:12
PROVIDERS: ADMIT Internal Medicine; ATTEND Internal Medicine
PROC: BT141ZZ Fluoroscopy of Kidneys, Ureters and Bladder using Low Osmolar Contrast (ICD-10-PCS; 2025-03-21)
PROC: 0TP98DZ Removal of Intraluminal Device from Ureter, Via Natural or Artificial Opening Endoscopic (ICD-10-PCS; 2025-03-21)
PROC: 0TP98DZ Removal of Intraluminal Device from Ureter, Via Natural or Artificial Opening Endoscopic (ICD-10-PCS; 2025-03-21)
PROC: 0T2BX0Z Change Drainage Device in Bladder, External Approach (ICD-10-PCS; 2025-03-21)
PROC: 0UJH7ZZ Inspection of Vagina and Cul-de-sac, Via Natural or Artificial Opening (ICD-10-PCS; 2025-03-21)
PROC: BT101ZZ Fluoroscopy of Bladder using Low Osmolar Contrast (ICD-10-PCS; 2025-03-21)
PROC: 0T788DZ Dilation of Bilateral Ureters with Intraluminal Device, Via Natural or Artificial Opening Endoscopic (ICD-10-PCS; principal; 2025-03-21 12:17)
DX: T83.592A Infection and inflammatory reaction due to indwelling ureteral stent, initial encounter (principal); N13.6 Pyonephrosis; Z16.24 Resistance to multiple antibiotics; T83.511A Infection and inflammatory reaction due to indwelling urethral catheter, initial encounter; Z93.59 Other cystostomy status; Z46.6 Encounter for fitting and adjustment of urinary device; N31.9 Neuromuscular dysfunction of bladder, unspecified; R33.8 Other retention of urine; N81.6 Rectocele; N95.2 Postmenopausal atrophic vaginitis; D72.819 Decreased white blood cell count, unspecified; D64.9 Anemia, unspecified; R31.29 Other microscopic hematuria; R80.9 Proteinuria, unspecified; I13.10 Hypertensive heart and chronic kidney disease without heart failure, with stage 1 through stage 4 chronic kidney disease, or unspecified chronic kidney disease; N18.9 Chronic kidney disease, unspecified; E66.9 Obesity, unspecified; Z68.27 Body mass index [BMI] 27.0-27.9, adult; B99.8 Other infectious disease; Y84.6 Urinary catheterization as the cause of abnormal reaction of the patient, or of later complication, without mention of misadventure at the time of the procedure; Y92.009 Unspecified place in unspecified non-institutional (private) residence as the place of occurrence of the external cause; Z85.41 Personal history of malignant neoplasm of cervix uteri; Z90.710 Acquired absence of both cervix and uterus; Z92.3 Personal history of irradiation; Z79.899 Other long term (current) drug therapy
CPT/HCPCS: 36415; 74176; 74420; 80048; 80053; 81001; 85025; 85610; 85730; 87086; 87186; 94799; 99284; C1758; C1769; C2617; J1100; J1308; J1885; J2003; J2185; J2250; J2270; J2405; J3373; J7030; J7050

== ENCOUNTER 2025-04-04 13:40 | Inpatient (IN) | payer OTHER ==
[~2025-04-04] VITALS: Ht 149.9 cm; Wt 61.4 kg
[2025-04-04 19:39] VITALS: BP 125/81; PULSE 87; RESP 20; TEMP 98.6; O2SAT 97
[2025-04-04 20:00] VITALS: BP 125/81; PULSE 87; RESP 20; TEMP 98.6; O2SAT 97
[2025-04-04 21:00] VITALS: BP 125/81; PULSE 87; RESP 20; TEMP 98.6; O2SAT 97
[2025-04-04] MEDS: ACETAMINOPHEN 325 MG TAB PO PRN (22:53)
[2025-04-04] MEDS: ACETAMINOPHEN 325 MG TAB ONE (22:54)
[2025-04-04] MEDS ORDERED: CELECOXIB 100 MG CAP PO PRN (23:15)
[2025-04-04] MEDS ORDERED: MAGNESIUM HYDROXIDE 30 ML UDC PO PRN (23:30)
[2025-04-05] VITALS (8 sets, daily range): BP systolic 109–135; BP diastolic 67–94; PULSE 72–106; RESP 18–20; TEMP 97–98.3; O2SAT 97–100
[2025-04-05] MEDS: SODIUM CHLORIDE 0.9% 1000ML 1,000 ML IV SCH (00:34)
[2025-04-05 01:06] LABS: BASOPHILS % 0.2 % (0.0-1.0); EOSINOPHILS % 3.8 % (0.0-6.0); LYMPHOCYTES % 13.7 % (18.0-39.1); MONOCYTES % 8.8 % (4.4-11.3); NEUTROPHILS % 73.1 % (38.7-80.0); RED CELL DISTRIBUTION WIDTH 13.3 % (11.7-14.4)
[2025-04-05 01:11] LABS: LEUKOCYTE ESTERASE ,URINE 2+ (NEGATIVE); PROTEIN,URINE DIPSTICK 1+ (NEGATIVE); URINE UROBILINOGEN 0.2 mg/dL (0.2 - 1)
[2025-04-05 01:24] LABS: EST GLOMERULAR FILTRATION RATE 96.0 ML/MIN (>=60)
[2025-04-05 01:40] LABS: EPITHELIAL CELLS,URINE MODERATE /LPF; WBC,URINE (MAN) >50 /HPF (0-5)
[2025-04-05 01:42] LABS: YEAST,URINE MODERATE
[2025-04-05] MEDS: SENNA-S TABLET PO SCH (09:00)
[2025-04-05] MEDS: OXYBUTYNIN CHLORIDE XL 5 MG TAB PO SCH (09:36)
[2025-04-05] MEDS: AMLODIPINE BESYLATE 10 MG TAB PO SCH (09:37)
[2025-04-05] MEDS: PREGABALIN 75 MG CAP PO SCH (09:37)
[2025-04-05] MEDS: FLUCONAZOLE 200 MG/100 ML 100 ML IV SCH (09:38)
[2025-04-05] MEDS: HYDROCODONE/APAP 7.5MG-325MG 1 EA TAB PO PRN (18:44)
[2025-04-05] MEDS: Morphine 4mg INJECTION 4 MG/ML INJ IV PRN (22:11)
[2025-04-05] MEDS: ATORVASTATIN 10 MG TAB PO SCH (22:12)
[2025-04-06] VITALS (9 sets, daily range): BP systolic 105–126; BP diastolic 72–81; PULSE 66–95; RESP 17–20; TEMP 97.5–99; O2SAT 97–100
[2025-04-06] MEDS ORDERED: FUROSEMIDE INJ 10 MG/ML 4 ML VIAL ONE (15:42)
[2025-04-07] VITALS (7 sets, daily range): BP systolic 120–132; BP diastolic 63–87; PULSE 60–90; RESP 18; TEMP 97.7–98.8; O2SAT 98–100
[2025-04-08 03:14] VITALS: BP 117/71; PULSE 80; RESP 18; TEMP 98.5; O2SAT 100
[2025-04-08 08:00] VITALS: BP 119/83; PULSE 74; RESP 18; TEMP 98.1; O2SAT 99
[2025-04-08 08:13] VITALS: BP 119/83; PULSE 83; RESP 17; TEMP 98.7; O2SAT 99
[2025-04-08] MEDS ORDERED: SENNA S TABLET1 EACH PO (10:10)
[2025-04-08 11:45] VITALS: BP 131/78; PULSE 81; RESP 18; TEMP 98.2; O2SAT 98
[2025-04-09] MEDS ORDERED: FLUCONAZOLE 100 MG TAB PO SCH (08:00)
== END 2025-04-08 13:50 | disposition home or self-care (01) | DRG 699 ==
LOC: MED/SURG2 13:40
PROVIDERS: ADMIT Internal Medicine; ATTEND Internal Medicine
DX: T83.518A Infection and inflammatory reaction due to other urinary catheter, initial encounter (principal); N13.6 Pyonephrosis; N31.9 Neuromuscular dysfunction of bladder, unspecified; D64.9 Anemia, unspecified; R31.29 Other microscopic hematuria; J30.2 Other seasonal allergic rhinitis; Z96.0 Presence of urogenital implants; Z85.41 Personal history of malignant neoplasm of cervix uteri; Z90.710 Acquired absence of both cervix and uterus; Z92.3 Personal history of irradiation; Z92.21 Personal history of antineoplastic chemotherapy; Z91.041 Radiographic dye allergy status; Z91.013 Allergy to seafood; Z91.018 Allergy to other foods
CPT/HCPCS: 36415; 74176; 78708; 80048; 81001; 85025; A9562; J0692; J1450; J1938; J2270; J7030

== ENCOUNTER 2025-04-10 22:30 | Inpatient (IN) | payer OTHER ==
[~2025-04-10] VITALS: Ht 149.9 cm; Wt 61.2 kg
[~2025-04-10 22:30] MED LIST changes: +SENNA S TABLET1 EACH PO
[2025-04-10] MEDS ORDERED: HYDROCODONE/APAP 5MG-325MG TAB PO PRN (23:00)
[2025-04-10 23:20] LABS: BASOPHILS % 0.2 % (0.0-1.0); EOSINOPHILS % 3.6 % (0.0-6.0); LYMPHOCYTES % 23.1 % (18.0-39.1); MONOCYTES % 9.6 % (4.4-11.3); NEUTROPHILS % 63.3 % (38.7-80.0); RED CELL DISTRIBUTION WIDTH 13.2 % (11.7-14.4)
[2025-04-10] MEDS: HYDROCODONE/APAP 10MG-325MG TAB PO PRN (23:20)
[2025-04-10] MEDS: ONDANSETRON HCL INJ 2MG/ML 2ML 2 MG/ML VIAL IV PRN (23:20)
[2025-04-10 23:28] VITALS: PULSE 83; RESP 17; TEMP 98.2
[2025-04-10 23:30] VITALS: PULSE 83; RESP 18; O2SAT 98
[2025-04-10 23:44] LABS: EST GLOMERULAR FILTRATION RATE 91.0 ML/MIN (>=60)
[2025-04-11] VITALS (11 sets, daily range): BP systolic 100–124; BP diastolic 64–82; PULSE 66–82; RESP 17–20; TEMP 97.7–98.2; O2SAT 96–100
[2025-04-11 06:46] LABS: BASOPHILS % 0.2 % (0.0-1.0); EOSINOPHILS % 4.3 % (0.0-6.0); LYMPHOCYTES % 28.1 % (18.0-39.1); MONOCYTES % 13.2 % (4.4-11.3); NEUTROPHILS % 54.0 % (38.7-80.0); RED CELL DISTRIBUTION WIDTH 13.1 % (11.7-14.4)
[2025-04-11 07:24] LABS: EST GLOMERULAR FILTRATION RATE 101.0 ML/MIN (>=60)
[2025-04-11] MEDS: PREGABALIN 50 MG CAP PO SCH (08:59)
[2025-04-11] MEDS: CELECOXIB 200 MG CAP PO SCH (08:59)
[2025-04-11] MEDS ORDERED: Morphine 4mg INJECTION 4 MG/ML INJ IV PRN (12:00)
[2025-04-11] MEDS: SENNA-S TABLET PO SCH (16:33)
[2025-04-11] MEDS: ATORVASTATIN 10 MG TAB PO SCH (20:34)
[2025-04-11] MEDS: CYCLOBENZAPRINE HCL 10 MG TAB PO PRN (20:56)
[2025-04-12] VITALS (7 sets, daily range): BP systolic 99–133; BP diastolic 70–85; PULSE 74–90; RESP 18; TEMP 97.9–98.4; O2SAT 97–100
[2025-04-12 06:34] LABS: BASOPHILS % 0.3 % (0.0-1.0); EOSINOPHILS % 5.3 % (0.0-6.0); LYMPHOCYTES % 25.1 % (18.0-39.1); MONOCYTES % 14.8 % (4.4-11.3); NEUTROPHILS % 54.2 % (38.7-80.0); RED CELL DISTRIBUTION WIDTH 13.0 % (11.7-14.4)
[2025-04-12 06:54] LABS: EST GLOMERULAR FILTRATION RATE 93.0 ML/MIN (>=60)
[2025-04-12] MEDS: AMLODIPINE BESYLATE 10 MG TAB PO SCH (09:00)
[2025-04-12] MEDS: FLUCONAZOLE 100 MG TAB PO ONE (09:25)
[2025-04-12 10:20] LABS: ALPHA FETO-PROTEIN 2.4 ng/mL (0.0-9.2)
[2025-04-13] VITALS: BP 109/67; PULSE 67; RESP 18; TEMP 97.6; O2SAT 100
[2025-04-13 08:45] VITALS: BP 133/77; PULSE 74; RESP 18; TEMP 98.1; O2SAT 96
[2025-04-13 09:00] VITALS: BP 133/77; PULSE 74; RESP 18; TEMP 98.1; O2SAT 96
[2025-04-13] MEDS: FLUCONAZOLE 100 MG TAB PO SCH (09:41)
[2025-04-13 12:49] VITALS: BP 119/72; PULSE 74; RESP 18; TEMP 98.1; O2SAT 100
[2025-04-13 16:20] VITALS: BP 108/75; PULSE 78; RESP 18; TEMP 98; O2SAT 100
[2025-04-13 20:00] VITALS: BP 120/89; PULSE 86; RESP 16; TEMP 97.9; O2SAT 100
[2025-04-14] VITALS (8 sets, daily range): BP systolic 107–121; BP diastolic 65–81; PULSE 60–84; RESP 17–18; TEMP 97.2–98.1; O2SAT 96–100
[2025-04-15] VITALS (7 sets, daily range): BP systolic 98–109; BP diastolic 69–78; PULSE 62–110; RESP 15–19; TEMP 97.7–98.2; O2SAT 98–100
[2025-04-15] MEDS ORDERED: LIDOCAINE HCL 2% LOCAL INJ 5 ML SDV VIAL INJ ONE (14:42)
[2025-04-15] MEDS ORDERED: PROPOFOL IV EMULSION 10 MG/ML 20 ML VIAL ONE (14:42)
[2025-04-15] MEDS ORDERED: MIDAZOLAM HCL 2 MG/2 ML VIAL ONE (14:42)
[2025-04-15] MEDS ORDERED: FENTANYL CITRATE/PF 100MCG/2 ML INJ ONE (14:42)
[2025-04-15] MEDS ORDERED: SEVOFLURANE INHAL SOLN 250 ML PEN BTL ONE (14:42)
[2025-04-15] MEDS ORDERED: FAMOTIDINE 20 MG/2 ML VIAL IV ONE (14:44)
[2025-04-15] MEDS ORDERED: ACETAMINOPHEN 1000 MG/100 ML 100 ML IV ONE (14:45)
[2025-04-15] MEDS ORDERED: DEXAMETHASONE SOD PHOS INJ 4 MG/ML SDV ONE (15:13)
[2025-04-15] MEDS ORDERED: ONDANSETRON HCL INJ 2MG/ML 2ML 2 MG/ML VIAL ONE (15:13)
[2025-04-15] MEDS ORDERED: GENTAMICIN SULFATE 40 MG/ML 2 ML VIAL ONE (15:19)
[2025-04-15] MEDS ORDERED: SODIUM CHLORIDE 0.9% 100 ML ONE (15:19)
[2025-04-16] VITALS: BP 105/70; PULSE 102; RESP 18; TEMP 97.7; O2SAT 97
[2025-04-16 04:00] VITALS: BP 91/62; PULSE 79; RESP 18; TEMP 98.1; O2SAT 99
[2025-04-16 06:58] LABS: BASOPHILS % 0.0 % (0.0-1.0); EOSINOPHILS % 0.1 % (0.0-6.0); LYMPHOCYTES % 6.1 % (18.0-39.1); MONOCYTES % 1.5 % (4.4-11.3); NEUTROPHILS % 92.1 % (38.7-80.0); RED CELL DISTRIBUTION WIDTH 12.8 % (11.7-14.4)
[2025-04-16 07:42] LABS: EST GLOMERULAR FILTRATION RATE 86.0 ML/MIN (>=60)
[2025-04-16 08:48] VITALS: BP 101/69; PULSE 81; RESP 18; TEMP 98.2; O2SAT 95
[2025-04-16 11:17] VITALS: BP 101/69; PULSE 81; RESP 18; TEMP 98.2; O2SAT 95
[2025-04-16 12:13] VITALS: BP 106/73; PULSE 100; RESP 20; TEMP 98.1; O2SAT 97
[2025-04-16] MEDS ORDERED: HYDROCODONE/APAP 10MG-325MG TAB PO PRN (16:00)
[2025-04-16] MEDS ORDERED: Morphine 4mg INJECTION 4 MG/ML INJ IV PRN (16:00)
== END 2025-04-16 14:47 | disposition home or self-care (01) | DRG 660 ==
LOC: ER 22:44 → ERHOLD 22:59 → MED/SURG3 23:45
PROVIDERS: ADMIT Internal Medicine; ATTEND Internal Medicine
PROC: 0TP98DZ Removal of Intraluminal Device from Ureter, Via Natural or Artificial Opening Endoscopic (ICD-10-PCS; 2025-04-15)
PROC: BT141ZZ Fluoroscopy of Kidneys, Ureters and Bladder using Low Osmolar Contrast (ICD-10-PCS; 2025-04-15)
PROC: 0UJH7ZZ Inspection of Vagina and Cul-de-sac, Via Natural or Artificial Opening (ICD-10-PCS; 2025-04-15)
PROC: 0T2BX0Z Change Drainage Device in Bladder, External Approach (ICD-10-PCS; 2025-04-15)
PROC: 0T788DZ Dilation of Bilateral Ureters with Intraluminal Device, Via Natural or Artificial Opening Endoscopic (ICD-10-PCS; principal; 2025-04-15 15:05)
DX: N13.6 Pyonephrosis (principal); B37.49 Other urogenital candidiasis; F11.20 Opioid dependence, uncomplicated; I10 Essential (primary) hypertension; N95.2 Postmenopausal atrophic vaginitis; N31.9 Neuromuscular dysfunction of bladder, unspecified; Z43.5 Encounter for attention to cystostomy; R33.9 Retention of urine, unspecified; N81.6 Rectocele; N30.21 Other chronic cystitis with hematuria; D64.9 Anemia, unspecified; E78.5 Hyperlipidemia, unspecified; T40.0X5A Adverse effect of opium, initial encounter; M62.838 Other muscle spasm; Y92.009 Unspecified place in unspecified non-institutional (private) residence as the place of occurrence of the external cause; G89.4 Chronic pain syndrome; G62.9 Polyneuropathy, unspecified; K21.9 Gastro-esophageal reflux disease without esophagitis; E66.9 Obesity, unspecified; Z71.3 Dietary counseling and surveillance; Z68.27 Body mass index [BMI] 27.0-27.9, adult; Z85.41 Personal history of malignant neoplasm of cervix uteri; Z90.710 Acquired absence of both cervix and uterus; Z92.3 Personal history of irradiation; Z92.21 Personal history of antineoplastic chemotherapy
CPT/HCPCS: 36415; 74420; 80048; 80053; 82105; 82378; 85025; 86301; 86304; 87086; 94799; 99284; C1758; C1769; C2617; J1100; J1308; J1580; J2003; J2250; J2405; J7050